=== PATIENT | male | born 2000 | race African-American/Black ===

== ENCOUNTER 2022-10-25 21:13 | Observation (INO) ==
--- NOTE | 2022-10-25 22:09 | Emergency Department Note ---
History of Present Illness General Chief complaint: Pain (Generalized) Stated complaint: PAIN ALL OVER, HEAD HURTS, Time Seen by Provider: 10/25/22 22:05 History of Present Illness Maximum Pain Intensity: 10 This 22-year-old male patient presents to the emergency department with his parents for evaluation of body aches and sickle cell crisis. The patient was seen earlier today due to a sickle cell crisis, but now has an increased headache, overall body pain, and a fever. Temperature 38.5 C orally in triage, but repeat temp was normal once he took off his coat etc. The patient developed an upper respiratory infection about 6 days ago and started taking antibiotics (cefuroxime) which had been prescribed by his ENT provider in the past which he had left over. He states that he became more congested and ended up going to an urgent care who stopped the antibiotics because they thought he was having an allergic reaction and placed him on a round of steroids. He received an IM dose of steroids and has taken 2 doses of the oral steroids so far. The patient was seen in the emergency department earlier today and received 2 L of lactated Ringer's, morphine, 1 g ceftriaxone, and discharged home on oxycodone and Augmentin. However, he was unable to control his pain and symp toms at home with this treatment. He states that his pain is progressively getting worse and he is getting "out of control" headaches. Could not control the symptoms at home after being discharged from the emergency department. States that the headaches are abnormal for him because he rarely gets any headaches and usually does not get headaches with his sickle cell crisis. He is very congested and can only breathe out of his mouth at times. Having pain in his lower back and his stomach feels a little upset at times, but denies abdominal pain. Has not eaten much all day. Denies any urinary symptoms. Moving his bowels well. Has not had a sickle cell crisis since high school. They are concerned that the steroids triggered his episode. 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 He is on Folic Acid and prophylactic penicillin on a regular basis. Sees hematology in [place] where he is from. Home Medications Medication Instructions Recorded Confirmed Type fluticasone propionate 50 2 spray intranasal DAILY 10/25/22 10/25/22 History mcg/actuation nasal spray,suspension folic acid 1 mg tablet 1 mg PO DAILY 10/25/22 10/25/22 History penicillin V potassium 250 mg 250 mg PO BID 10/25/22 10/25/22 History tablet Allergies Allergy/AdvReac Type Severity Reaction Status Date / Time No Known Allergies Allergy Verified 10/25/22 22:30 Past Med/Surg History Medical History Sickle cell disease Surgical History H/O splenectomy Social History Smoking Status: Never smoker Tobacco Type: Cigarettes Hx Alcohol Use: Yes Hx Substance Use: No Preferred Language: Armenian Communication Ability: Effective 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 Physical Exam Vital Signs Vital Signs - 24 hr 10/25/22 21:16 10/25/22 21:30 10/25/22 23:20 Temperature 38.5 C H 37.5 C Temperature Source Temporal Artery Scan Oral Pulse Rate 106 H Pulse Rate [Finger] 61 Respiratory Rate 20 16 Respiratory Depth Blood Pressure 114/69 Blood Pressure [Left Arm] 124/66 Blood Pressure Mean 84 Blood Pressure Mean [Left Arm] 85 Pulse Oximetry 96 88 L Oxygen Delivery Method Room Air Room Air Oxygen Flow Rate Sepsis Recent Fever Within 48 Hours No Sepsis New/Unexplained Change in Mental Status N/A Sepsis Action Taken by Nursing No Action Required 10/25/22 23:22 10/26/22 00:00 Temperature Temperature Source Pulse Rate Pulse Rate [Finger] 62 61 Respiratory Rate 16 16 Respiratory Depth Normal Blood Pressure Blood Pressure [Left Arm] 133/72 Blood Pressure Mean Blood Pressure Mean [Left Arm] 92 Pulse Oximetry 93 99 Oxygen Delivery Method Nasal Cannula Nasal Cannula Oxygen Flow Rate 2 2 Sepsis Recent Fever Within 48 Hours Sepsis New/Unexplained Change in Mental Status Sepsis Action Taken by Nursing VITALS: Vitals are noted on the nurse's note and reviewed by myself. GENERAL: The patient appears in pain, but non toxic, no acute distress, non- diaphoretic. SKIN: No obvious rashes noted. Capillary refill <2 sec. EARS: External auditory canals clear, tympanic membranes pearly campuzano without erythema or effusion bilaterally. EYES: PERRLA. EOMI. Conjunctivae without injection, sclerae without icterus. NOSE: Audible nasal congestion without active discharge frontal sinus tenderness bilaterally. MOUTH: Mucous membranes moist. Uvula midline. Airway patent. NECK: Supple without nuchal rigidity. Negative Kernig and Brudzinski. No lymphadenopathy. HEART: Regular rate and rhythm without murmurs gallops or rubs. LUNGS: Clear to auscultation bilaterally without wheezes, rales or rhonchi. No retractions or accessory muscle use. ABDOMEN: Positive bowel sounds x 4. Normal tympanic percussion. Soft, nontender, without masses or organomegaly. Okeefe sign negative. No guarding or rebound tenderness. No focal RLQ or LLQ tenderness. MUSCULOSKELETAL: The patient is diffusely tender to palpation due to his body aches. However, no gross musculoskeletal defects. NEURO: Patient was alert and oriented to person place and time. No focal neurological deficits. Course Administered Medications Dextrose/Sodium Chloride (D5w And 1/2nss) 1,000 mls @ 80 mls/hr IV .[id number] MICHI Stop: 10/27/22 03:29 Last Admin: 10/26/22 02:32 Dose: 80 mls/hr Documented By: GRAZYNA Oxycodone HCl (Oxycodone Hcl Ir 5 Mg Tab (Immediate Release)) 5 mg PO Q3H PRN PRN Reason: Moderate Pain Stop: 11/09/22 01:40 Last Admin: 10/26/22 02:00 Dose: 5 mg Documented By: KIT Discontinued Medications Acetaminophen (Acetaminophen 325 Mg Tab) 650 mg PO NOW STA Stop: 10/26/22 01:29 Last Admin: 10/26/22 02:25 Dose: Not Given Documented By: GRAZYNA Sodium Chloride (Nss 1000ml) 1,000 mls @ 999 mls/hr IV .Q1H1M ONE Stop: 10/25/22 23:23 Last Infusion: 10/25/22 23:48 Dose: 0 mls/hr Documented By: Admin: 10/25/22 22:44 Dose: 999 mls/hr Documented By: KIT Ketorolac Tromethamine (Ketorolac Tromethamine 15 Mg/Ml Vial) 10 mg IV NOW STA Stop: 10/26/22 02:09 Last Admin: 10/26/22 02:24 Dose: 10 mg Documented By: GRAZYNA Morphine Sulfate (Morphine Sulfate 10 Mg/Ml Carp/Vial) 6 mg IV NOW STA Stop: 10/25/22 22:24 Last Admin: 10/25/22 22:45 Dose: 6 mg Documented By: KIT Ondansetron HCl (Ondansetron Inj 2 Mg/Ml 2 Ml Vial) 4 mg IV NOW STA Stop: 10/25/22 22:24 Last Admin: 10/25/22 22:45 Dose: 4 mg Documented By: KIT Medical Decision Making Differential Diagnosis Differential diagnosis includes sickle cell crisis, acute intracranial abnormality, meningitis, URI, COVID, influenza, sinusitis, acute chest syndrome, acute abdominal etiology, UTI, or others. Laboratory Data Attestation: I reviewed the patient's lab results. 10/25/22 22:43 10/25/22 22:43 Lab Results 10/25/22 10/25/22 10/25/22 Range/Units 22:43 22:43 22:43 WBC 20.87 H (4.8-10.8) K/ul RBC 3.69 L (4.70-6.10) M/uL Hgb 9.3 L (14.0-18.0) g/dl Hct 27.6 L (42.0-52.0) % MCV 74.8 L (80.0-100.0) fL MCH 25.2 (25.0-34.0) pg MCHC 33.7 (32.0-36.0) g/dL RDW Std Deviation 34.0 L (36.4-46.3) fL RDW Coeff of Anant 13.1 (11.5-14.5) % Plt Count 360 (130-400) K/uL MPV 11.5 (9.4-12.4) fL Reticulocyte % (Auto) 5.6 H (0.5-2.0) % Reticulocyte # 0.21 H (0.02-0.10) 10^6/uL Absolute Nucleated RBC 0.74 H (0-0.12) K/uL Nucleated RBC % (auto) 3.5 % Neutrophils % (Manual) 50 % Lymphocytes % (Manual) 25 % Reactive Lymphs % (Man) 13 % Monocytes % (Manual) 12 % Neutrophils # (Manual) 10.44 H (1.40-6.50) K/uL Total Absolute Neuts 10.44 H (1.4-6.5) K/uL Lymphocytes # (Manual) 5.22 H (1.2-3.4) K/uL Reactive Lymphs # 2.71 K/uL Total Abs Lymphocytes 7.93 H (1.2-3.4) K/uL Monocytes # (Manual) 2.50 H (0.11-0.59) K/uL Polychromasia 1+ Target Cells 2+ Sodium 136 (136-145) mmol/L Potassium 3.4 L (3.5-5.1) mmol/L Chloride 103 (98-107) mmol/L Carbon Dioxide 26 (21-32) mmol/L Anion Gap 7 (3-11) BUN 7 (6-23) mg/dl Creatinine 0.55 L (0.6-1.4) mg/dl Est Cr Clr Drug Dosing Not Reportable Est GFR ( Amer) > 150.0 ml/min Est GFR (Non-Af Amer) > 150.0 ml/min BUN/Creatinine Ratio 12.7 (10-20) Glucose 98 (70-99(Fasting)) mg/dl Lactate 0.9 (0.4-2.0) mmol/L Calcium 8.2 L (8.5-10.1) mg/dl Total Bilirubin 1.3 H (0.2-1.0) mg/dl Direct Bilirubin 0.4 H (0-0.2) mg/dl AST 29 (13-39) U/L ALT 23 (7-52) U/L Alkaline Phosphatase 71 (34-104) U/L Total Protein 7.1 (6.0-8.3) gm/dl Albumin 3.5 (3.4-5.0) gm/dl Globulin 3.6 (2.5-4.0) gm/dl Albumin/Globulin Ratio 1.0 (0.9-2) Urine Color Urine Appearance (Clear) Urine pH (4.5-7.5) Ur Specific [place] (1.000-1.030) Urine Protein (Negative) Urine Glucose (UA) (Negative) Urine Ketones (Negative) Urine Blood (Negative) Urine Nitrite (Negative) Urine Bilirubin (Negative) Urine Urobilinogen (Negative) Ur Leukocyte Esterase (Negative) 10/25/22 Range/Units 22:43 WBC (4.8-10.8) K/ul RBC (4.70-6.10) M/uL Hgb (14.0-18.0) g/dl Hct (42.0-52.0) % MCV (80.0-100.0) fL MCH (25.0-34.0) pg MCHC (32.0-36.0) g/dL RDW Std Deviation (36.4-46.3) fL RDW Coeff of Anant (11.5-14.5) % Plt Count (130-400) K/uL MPV (9.4-12.4) fL Reticulocyte % (Auto) (0.5-2.0) % Reticulocyte # (0.02-0.10) 10^6/uL Absolute Nucleated RBC (0-0.12) K/uL Nucleated RBC % (auto) % Neutrophils % (Manual) % Lymphocytes % (Manual) % Reactive Lymphs % (Man) % Monocytes % (Manual) % Neutrophils # (Manual) (1.40-6.50) K/uL Total Absolute Neuts (1.4-6.5) K/uL Lymphocytes # (Manual) (1.2-3.4) K/uL Reactive Lymphs # K/uL Total Abs Lymphocytes (1.2-3.4) K/uL Monocytes # (Manual) (0.11-0.59) K/uL Polychromasia Target Cells Sodium (136-145) mmol/L Potassium (3.5-5.1) mmol/L Chloride (98-107) mmol/L Carbon Dioxide (21-32) mmol/L Anion Gap (3-11) BUN (6-23) mg/dl Creatinine (0.6-1.4) mg/dl Est Cr Clr Drug Dosing Est GFR ( Amer) ml/min Est GFR (Non-Af Amer) ml/min BUN/Creatinine Ratio (10-20) Glucose (70-99(Fasting)) mg/dl Lactate (0.4-2.0) mmol/L Calcium (8.5-10.1) mg/dl Total Bilirubin (0.2-1.0) mg/dl Direct Bilirubin (0-0.2) mg/dl AST (13-39) U/L ALT (7-52) U/L Alkaline Phosphatase (34-104) U/L Total Protein (6.0-8.3) gm/dl Albumin (3.4-5.0) gm/dl Globulin (2.5-4.0) gm/dl Albumin/Globulin Ratio (0.9-2) Urine Color Real Urine Appearance Clear (Clear) Urine pH 6.0 (4.5-7.5) Ur Specific [place] 1.013 (1.000-1.030) Urine Protein Negative (Negative) Urine Glucose (UA) Negative (Negative) Urine Ketones Negative (Negative) Urine Blood Negative (Negative) Urine Nitrite Negative (Negative) Urine Bilirubin Negative (Negative) Urine Urobilinogen Positive H (Negative) Ur Leukocyte Esterase Negative (Negative) Imaging Data Radiologist's Impression: Preliminary Findings Only See Final Report For Complete Findings CT HEAD: No acute findings. Radiologist: Edward Ashley MD Study ready at 23:12 and initial results transmitted at 23:13 MDM Narrative I examined the patient. Medical records from his emergency department visit earlier today were reviewed. Biofire viral panel and chest x-ray were negative at that time. EKG unremarkable. Blood work was also reviewed. An IV lock was placed and labs were drawn. He was given 1 L normal saline solution bolus. He was also given morphine 6 mg IV and Zofran 4 mg IV with improvement of his pain and nausea. White blood cell count slightly improved to 20.87 from 21.60 earlier today - this may be secondary to his recent steroid use, his current sinusitis, stress response from his sickle cell crisis, or other etiologies. Hemoglobin now 9.3 down from 10.6 earlier today after a total of 3 L of fluid today. Reticulocyte count similar at 5.6 compared to 5.7 earlier today. Potassium 3.4, calcium 8.2, total bilirubin 1.3, direct bilirubin 0.4. CMP otherwise unremarkable. Lactate normal and procalcitonin was normal earlier today. Urinalysis positive for urobilinogen, but otherwise negative. The patient states that his headache was atypical and he had a questionable fever upon arrival in triage today. CT scan of the head without contrast was interpreted by myself and read by stat read as above and was negative for acute intracranial abnormalities. I do not suspect meningitis based on his history and exam findings. I do not suspect acute chest syndrome, avascular necrosis, or blood clots at this time. I do not suspect acute intra-abdominal etiology re quiring CT scan at this time, however, he will need to be monitored closely for development of any of these etiologies or other complications. The patient has failed outpatient treatment with Augmentin and oxycodone. He does not feel he can be discharged home to manage his symptoms as an outpatient. I discussed the case with the on-call hospitalist who agreed to accept the patient for admission. Please refer to their dictation for further details. The patient was admitted in stable condition. Impression & Plan Sickle cell crisis, Sinusitis, Headache Discharge Plan Visit Data Chief Complaint: Pain (Generalized) Stated Complaint: PAIN ALL OVER, HEAD HURTS, ED Provider: Delfino Stafford ED Midlevel Provider: Isabela Mckenzie Discharge Problem: Sickle cell crisis, Sinusitis, Headache Patient Disposition: Admitted As Inpatient Condition: Good Discharge Instructions Interventions: ED Discharge Assessment Last Done: 10/26/22 02:08
[2022-10-25] MEDS ORDERED: ONDANSETRON INJ 2 MG/ML 2 ML VIAL IV STA (22:23)
[2022-10-25] MEDS ORDERED: MoRPHine SULFATE 10 MG/ML CARP/VIAL IV STA (22:23)
[2022-10-25] MEDS ORDERED: SODIUM CHLORIDE 0.9% 1000ML 1,000 ML IV ONE (22:23)
[2022-10-25 23:02] LABS: Hematocrit (blood only) 27.6 % (42.0-52.0); Hemoglobin 9.3 g/dl (14.0-18.0); Mean Corpuscular Hemoglobin 25.2 pg (25.0-34.0); Mean Corpuscular Hgb Conc 33.7 g/dL (32.0-36.0); Mean Corpuscular Volume 74.8 fL (80.0-100.0); Mean Platelet Volume 11.5 fL (9.4-12.4); Nucleated RBC # (auto) 0.74 K/uL (0-0.12); Nucleated RBC % (auto) 3.5 %; Platelet Count 360 K/uL (130-400); RDW Coefficient of Variation 13.1 % (11.5-14.5); Red Blood Count 3.69 M/uL (4.70-6.10); Reticulocyte % 5.6 % (0.5-2.0); Reticulocytes # 0.21 10^6/uL (0.02-0.10); White Blood Count 20.87 K/ul (4.8-10.8)
[2022-10-25 23:19] LABS: Alanine Aminotransferase 23 U/L (7-52); Albumin Level 3.5 gm/dl (3.4-5.0); Alkaline Phosphatase 71 U/L (34-104); Anion Gap 7 (3-11); Aspartate Aminotransferase 29 U/L (13-39); BUN Creatinine Ratio 12.7 (10-20); Bilirubin Direct 0.4 mg/dl (0-0.2); Bilirubin,Total 1.3 mg/dl (0.2-1.0); Blood Urea Nitrogen 7 mg/dl (6-23); Calcium 8.2 mg/dl (8.5-10.1); Carbon Dioxide 26 mmol/L (21-32); Chloride 103 mmol/L (98-107); Est GFR (African American) > 150.0 ml/min; Est GFR (Non-African American) > 150.0 ml/min; Globulin 3.6 gm/dl (2.5-4.0); Glucose 98 mg/dl (70-99(Fasting)); Potassium 3.4 mmol/L (3.5-5.1); Sodium 136 mmol/L (136-145); Total Protein 7.1 gm/dl (6.0-8.3)
[2022-10-25 23:58] LABS: Appearance Urine Clear (Clear); Bilirubin Urine Negative (Negative); Blood Urine Negative (Negative); Color Urine Orange; Glucose Urine UA Negative (Negative); Ketones Urine Negative (Negative); Leukocyte Esterase Urine Negative (Negative); Nitrite Urine Negative (Negative); Protein Urine Negative (Negative); Specific Gravity Urine 1.013 (1.000-1.030); Urobilinogen Urine Positive (Negative)
[2022-10-26 00:30] LABS: ALC (manual) 7.93 K/uL (1.2-3.4); ANC (manual) 10.44 K/uL (1.4-6.5); Lymphocytes # (manual) 5.22 K/uL (1.2-3.4); Lymphocytes % (manual) 25 %; Monocytes % (manual) 12 %; Neutrophils # (manual) 10.44 K/uL (1.40-6.50); Neutrophils % (manual) 50 %; Polychromasia 1+; Reactive Lymphocytes # (manual) 2.71 K/uL; Reactive Lymphocytes % (manual) 13 %; Target Cells 2+
--- NOTE | 2022-10-26 00:50 | History & Physical Report ---
Date of Service October 26, 2022 Assessment & Plan (1) Sickle cell crisis: Plan: Donnell is a 22 year old male w/ PmHx sickle cell disease admitted for acute crisis in the face of URI. Sickle cell crisis: -Hgb 9.3, T bili 1.3, D bili 0.4. U/A negative except urobilinogen. -CXR negative for any acute cardiopulmonary processes. -EKG NSR w/o any acute ischemic changes. -Headache this ED visit however CT Head negative. -Most likely sickle cell crisis exacerbated by infection. -Tylenol q4h PRN for mild to moderate pain, oxycodone 5mg q3h for moderate pain, morphine 2mg IV for mod to severe pain, morphine 4mg IV for severe pain. -Patient had requested Toradol due to relief he felt and wanting to stay off opioids. Told patient not recommended due to potential for occlusion of renal arteries or areterioles that could result in kidney injury, worsened by NSAID use. Patient still requested and so Toradol 10mg spot dose given on admission. -Continue home folic acid daily. -Patient not on hydroxyurea at home, no need to start at this visit. -Monitor for acute chest or acute worsening of symptoms. -Once pain under good control can D/C. Sinusitis: -Hx of splenectomy on pencillin V 250mg BID. -Had few days of cefuroxime w/o relief. -Given 1g Ceftriaxone (CTX) in ED. -Continue CTX 1g q24h for 2 more days given potential for haemophilus infection. -If D/C'ed prior to finishing, can D/C on equivalent oral. -Can hold penicillin V while on CTX. DVT Prophylaxis: Patient mobile, not needed at this time. F/E/N/GI: Regular diet. Code status: Full code Dispo: Med/surg (2) Sinusitis: History of Present Illness Chief Complaint: Generalized pain Primary Care Provider: [facility] Donnell is a 22 year old PmHx sickle cell disease coming in to the ED for generalized pain and sickle cell crisis. Patient had the onset of new URI symptoms early last week which worsened on Monday w/ congestion and sinus pressure. Patient had cefuroxime from previous ENT visit that he used for a few days however the congestion worsened. He then went to urgent care around [place] and it was thought he was having a reaction to the antibiotic so he was given an IM dose of steroid and placed on prednisone to go home on. After taking the prednisone, on the night of 10/24 he developed severe pain in his legs, lower back, chest, shoulders, and arms. His pain was so bad he decided to come into the ED where he received 2L of LR, a few spot doses of morphine, 1g CTX, and sent home with oxycodone and a prescription for Augmentin since the patient felt he would rather be discharged and manage at home. However his pain returned and he came back to the ED with a decision to admit to control pain. Currently his pain is worst at the lower back near the coccyx and at the bilateral upper legs. He also complains of a headache across the forehead but he also states he did not eat much today. He states that he follows with hematology in his hometown of [place] where he usually goes if he feels a sickle cell crisis coming on and they treat him in office. His parents state that he's had around 3 sickle crisis before with the last one being 3 or more years ago when he was in high school. His parents state he usually does not take any opioid medications for the sickle cell crisis, even on discharge out of hospitals for crisis. He had a splenectomy at 8 years of age and is on penicillin V 250mg BID for prophylaxis. He denies any shortness of breath, chills, diarrhea, constipation, vomiting. In the ED he had an elevated WBC 20.87, Hgb 9.3, Platelet 360, reticulocyte 0.21. Na 136, K+ 3.4, Cl 103, BUN 7, Creat 0.55, T bili 1.3, D bili 0.4. U/A positive for urobilinogen but negative otherwise. Respiratory PCR panel negative. He was given 1L NSS, 6mg morphine, 4mg ondansetron in the ED. Allergies Allergy/AdvReac Type Severity Reaction Status Date / Time No Known Allergies Allergy Verified 10/25/22 22:30 Home Medications Medication Instructions Recorded Confirmed Type fluticasone propionate 50 2 spray intranasal DAILY 10/25/22 10/25/22 History mcg/actuation nasal spray,suspension folic acid 1 mg tablet 1 mg PO DAILY 10/25/22 10/25/22 History penicillin V potassium 250 mg 250 mg PO BID 10/25/22 10/25/22 History tablet Past Med/Surg History Medical History Sickle cell disease Surgical History H/O splenectomy Social History Smoking Status: Never smoker Tobacco Type: Cigarettes Hx Alcohol Use: Yes Hx Substance Use: No Preferred Language: Cypriot Communication Ability: Effective 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 Physical Exam Constitutional: WD/WN, vitals as above Patient lying in bed not in any acute distress, visible mouth breathing and audible congestion. Eyes: PERRL, conjunctivae normal, anicteric sclerae Respiratory: Lungs clear to auscultation on inhalation, mildly course on end expiration however mostly upper respiratory, no stridor. Cardiovascular: RRR, no murmur, no edema Gastrointestinal (Abdomen): normal bowel sounds, soft, nontender, no hepatosplenomegaly Psychiatric: A+Ox3, euthymic affect Results & Data Results & Data ([facility]) Vital Signs (Past 12 Hours) Vital Signs Temp Pulse Pulse Resp BP BP Pulse Ox 10/26/22 00:00 61 16 133/72 99 10/25/22 23:22 62 16 93 10/25/22 23:20 61 16 124/66 88 L 10/25/22 21:30 37.5 C 10/25/22 21:16 38.5 C H 106 H 20 114/69 96 O2 Del Method O2 Flow Rate 10/26/22 00:00 Nasal Cannula 2 10/25/22 23:22 Nasal Cannula 2 10/25/22 23:20 Room Air 10/25/22 21:30 10/25/22 21:16 Room Air Supervising Physician Co-Signing Physician Notes Patient seen and examined, chart reviewed, case discussed with Dr. Rodriguez and I agree with the assessment and plan as above. IN brief, patient is a 22yo male with sickel cell disease s/p splenectomy presenting with acute vaso- occlusive pain crisis in the setting of URI symptoms. He is complaining of pain in his back and thighs. Also with considerable nasal congestion. He denies fever, chills, cough, SOB. Does have some mild chest discomfort. On exam he is somnolent after receiving Morphine, NAD Skin - intact HEENT - MMM, Neck supple Heart - +S1/S2, regular, no m/r/g Lungs - CTA, no rales/rhonchi/wheezes Abd - Soft, NT/ND Ext - warm, well perfused Labs and images reviewed Assessment/Plan - 22yo male with SSA presenting with acute pain crisis Family is at bedside. Is concerned about patient receiving opioids. Does want him to have Toradol Trigger most likely viral URI syndrome -IVF, O2, pain control -Ceftriaxone -Hold patient's prophylactic PCN VK -Monitor CBC and reticulocytes -Remainder of plan as above Resident Activity Tracking Resident Involvement: Resident Care Provided Care Provided: Adult Hospital Medicine (1) Sinusitis Chronicity: acute Recurrence: non-recurrent Sinusitis location: unspecified location Qualified Code(s): J01.90 - Acute sinusitis, unspecified
[2022-10-26] MEDS ORDERED: ACETAMINOPHEN 325 MG TAB PO STA (01:28)
[2022-10-26] MEDS: oxyCODONE HCL IR 5 MG TAB (IMMEDIATE RELEASE) PO PRN ×4 (02:00→22:24)
[2022-10-26] MEDS ORDERED: KETOROLAC TROMETHAMINE 15 MG/ML VIAL IV STA (02:08)
[2022-10-26] MEDS ORDERED: MoRPHine SULFATE 4 MG/ML 1 ML CARP\\VIAL IV PRN ×2 (02:19→03:13)
[2022-10-26] MEDS ORDERED: MoRPHine SULFATE 2 MG/ML CARP IV PRN (02:19)
[2022-10-26] MEDS: D5W AND 1/2NSS 1,000 ML IV SCH ×2 (02:32→15:22)
[2022-10-26] MEDS: MoRPHine SULFATE 2 MG/ML CARP IV PRN ×2 (04:22→09:09)
[2022-10-26] MEDS ORDERED: ONDANSETRON INJ 2 MG/ML 2 ML VIAL IV PRN (04:30)
[2022-10-26] MEDS ORDERED: POTASSIUM CHLORIDE CRTAB 20 MEQ TABCR PO STA (07:18)
--- NOTE | 2022-10-26 07:24 | CT Scan Report ---
CT OF THE HEAD WITHOUT CONTRAST CLINICAL HISTORY: Headache. COMPARISON STUDY: No previous studies for comparison. CT DOSE: 548.23 mGy.cm TECHNIQUE: Helical axial images of the head were obtained without IV contrast. Automated exposure con trol was utilized for the study. A dose lowering technique was utilized adhering to the principles o f ALARA. FINDINGS: No acute intracranial hemorrhage, midline shift or mass effect is present. The ventricular system is unremarkable. The basal cisterns are patent. No extra-axial collections are present. There are no findings to suggest acute dural sinus thrombosis or acute territorial infarct. No significant calvarial abnormalities are present. The adenoids are enlarged, partially imaged on this exam. There are secretions within the nasal cavity. Minimal sinus mucosal thickening is present. IMPRESSION: 1. No acute intracranial findings. 2. Enlarged adenoids, partially imaged on this exam. ACT 112: Negative or not required by law. Electronically signed by: Dimas Callahan M.D. 10/26/2022 7:22 AM
[2022-10-26] MEDS: ACETAMINOPHEN 325 MG TAB PO PRN ×3 (07:36→19:35)
[2022-10-26] MEDS: ENOXAPARIN INJ 40 MG/0.4 ML SYR SQ SCH (08:40)
[2022-10-26] MEDS: FLUTICASONE PROPIONATE NA SPR 16 GM BTL SCH ×2 (08:41→21:02)
[2022-10-26] MEDS: FOLIC ACID 1 MG TAB PO SCH (08:42)
[2022-10-26] MEDS: guaiFENesin 600 MG TABCR PO SCH ×3 (08:42→21:07)
[2022-10-26] MEDS ORDERED: SODIUM CHLORIDE 0.65% NA SOLN 45 ML (OCEAN) PRN (09:28)
[2022-10-26] MEDS ORDERED: PIPERACILLIN/TAZOBACTAM 4.5 GM in DEXTROSE 5% 100 ML IV ONE (09:30)
--- NOTE | 2022-10-26 09:31 | Hospitalist Progress Note ---
Date of Service October 26, 2022 Assessment & Plan (1) Sickle cell crisis: Plan: Donnell is a 22 year old male w/ PmHx sickle cell disease admitted for acute crisis in the face of URI. Sickle cell crisis: -Hgb 9.3, T bili 1.3, D bili 0.4. U/A negative except urobilinogen. -CXR negative for any acute cardiopulmonary processes. -EKG NSR w/o any acute ischemic changes. -Headache this ED visit however CT Head negative. -Tylenol q4h PRN for mild to moderate pain, oxycodone 5mg q3h for moderate pain - Morphine discontinued upon patient request -1 dose Toradol 10mg spot dose given on admission at patient request -Continue home folic acid daily. -IV fluids: D5W + 1/2NSS 80 ml/hr -Monitor for acute chest or acute worsening of symptoms. 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 Code status: Full code Dispo: PCU (2) Sinusitis: (3) Mononucleosis: Admission and Anticipated Discharge Date Admission Date: October 26, 2022 Supervising Physician Co-Signing Physician Notes Resident Physician Supervision Note: I independently interviewed and examined the patient and verified the marin history and physical, reviewed labs and image studies and agree with resident findings and care plan. 22yo male with sickel cell disease s/p splenectomy presenting with acute vaso- occlusive pain crisis in the setting of URI symptoms. Pain in back and thigh controlled with medication. continues to have significant nasal congestion and muffled voice. No chest pain, shorntess of breath On exam he is somnolent after receiving Morphine, NAD Skin - intact HEENT - MMM, Neck supple, enlarged tonsils. Heart - +S1/S2, regular, no m/r/g Lungs - CTA, no rales/rhonchi/wheezes Abd - Soft, NT/ND Ext - warm, well perfused Labs and images reviewed Assessment/Plan - 22yo male with SSA presenting with acute pain crisis Acute pain crisis - Family is at bedside. Is concerned about patient receiving opioids. Does want him to have Toradol Trigger most likely viral URI syndrome -IVF, O2, pain control -Ceftriaxone -Hold patient's prophylactic PCN VK -Monitor CBC and reticulocytes Severe nasal congestion and muffled voice - Chest CT done with no abscesses -no airway support needed. Subjective Donnell Pacheco is a 22 yo male with a PMH of Sickle Cell Anemia and splenectomy. Presented 2/7 two times to the ED with generalized pain, headache and fever that began the night prior. He had sinus congestion and symptoms of a URI 6 days prior. He took leftover Cefuroxime and an urgent care prescribed oral steroids. Home medications include fluticasone, folic acid, and penicillin. He has never had a blood clot, transfusion, or taken hydroxyurea before. He recalls having the Strep pneumo and flu vaccine, unsure about H influenzae, has not gotten the COVID vaccine. Today he reports significant pain but is extremely fatigued and falling asleep during the conversation. Parents at bedside. He has seen [facility] in the past and only required their day time clinics for hydration and pain relief. Physical Exam 2 Constitutional: + ill appearing ENMT: Mouth: + muffled voice Respiratory: normal respiratory effort Auscultation: lungs clear to auscultation bilaterally Cardiovascular: RRR, no murmur, no edema Gastrointestinal (Abdomen): normal bowel sounds, soft, nontender, no hepatosplenomegaly Psychiatric: A+Ox3, euthymic affect Lymphatic: no cervical or axillary lymphadenopathy Results & Data Results & Data ([facility]) Vital Signs (Past 12 Hours) Vital Signs Temp Pulse Resp BP Pulse Ox O2 Del Method O2 Flow Rate 10/26/22 08:37 39.3 C H 85 97 Room Air 10/26/22 07:11 38.1 C H 104 H 19 106/64 96 Room Air 10/26/22 02:42 37.1 C 82 18 131/77 99 Room Air 10/26/22 01:51 71 20 130/78 97 Room Air 10/26/22 00:00 61 16 133/72 99 Nasal Cannula 2 10/25/22 23:22 62 16 93 Nasal Cannula 2 10/25/22 23:20 61 16 124/66 88 L Room Air 10/25/22 21:30 37.5 C (1) Sinusitis Chronicity: subacute Sinusitis location: frontal Qualified Code(s): J01.10 - Acute frontal sinusitis, unspecified
[2022-10-26] MEDS ORDERED: OPTIRAY 350 100ml IV ONE (10:00)
--- NOTE | 2022-10-26 10:07 | CT Scan Report ---
CT OF THE NECK WITH IV CONTRAST CLINICAL HISTORY: Muffled voice, SIRS COMPARISON STUDY: No previous studies for comparison. TECHNIQUE: Following IV administration of 87 mL of Optiray, helical axial images of the neck were ob tained. Sagittal and coronal reconstructions were viewed. Automated exposure control was utilized f or the study. A dose lowering technique was utilized adhering to the principles of ALARA. CT DOSE: 395.17 mGycm FINDINGS: Visualized portions of the intracranial contents are unremarkable. Trace fluid within the left mastoid air cells is present. There is minimal sinus mucosal thickening. There are secretions wi thin the nasopharynx. The adenoids are enlarged. In addition, the bilateral palatine tonsils are enla rged and hyperemic with striated appearance. There is no peritonsillar abscess. Epiglottis is normal. The parotid and submandibular glands are normal. Numerous mildly enlarged bilateral cervical lymph n odes are noted. Index right level 2 node measures 2.3 x 1.4 cm. There is trace prevertebral edema. Ma tram vasculature of the neck is patent. There is no soft tissue gas. A few tiny subpleural nodules wit hin visualized right lung apex are likely benign. IMPRESSION: 1. Enlarged, hyperemic tonsils consistent acute tonsillitis. No peritonsillar abscess. Enlarged adeno ids. 2. Mild bilateral cervical lymphadenopathy which is likely reactive. 3. Minimal sinus mucosal thickening. Secretions within the nasal cavity and nasopharynx. ACT 112: Negative or not required by law. Electronically signed by: Dimas Callahan M.D. 10/26/2022 10:05 AM
[2022-10-26 10:45] LABS: Hematocrit (blood only) 27.9 % (42.0-52.0); Hemoglobin 9.2 g/dl (14.0-18.0); Mean Corpuscular Hemoglobin 25.1 pg (25.0-34.0); Mean Platelet Volume 11.6 fL (9.4-12.4); Nucleated RBC % (auto) 4.9 %; Platelet Count 349 K/uL (130-400); RDW Coefficient of Variation 13.2 % (11.5-14.5); RDW Standard Deviation 34.8 fL (36.4-46.3); Red Blood Count 3.67 M/uL (4.70-6.10); White Blood Count 20.39 K/ul (4.8-10.8)
--- NOTE | 2022-10-26 10:57 | Electrocardiogram Report ---
Test Reason : Blood Pressure : / mmHG Vent. Rate : 064 BPM Atrial Rate : 064 BPM P-R Int : 122 ms QRS Dur : 090 ms QT Int : 388 ms P-R-T Axes : 061 032 028 degrees QTc Int : 400 ms Normal sinus rhythm Normal ECG No previous ECGs available Confirmed by Prakash Hirsch ([id number]) on 10/26/2022 10:57:37 AM Referred By: REFERRED SELF Confirmed By:Prakash Hirsch
[2022-10-26 11:13] LABS: Alanine Aminotransferase 28 U/L (7-52); Albumin Globulin Ratio 1.1 (0.9-2); Albumin Level 3.6 gm/dl (3.4-5.0); Alkaline Phosphatase 131 U/L (34-104); Anion Gap 4 (3-11); Aspartate Aminotransferase 41 U/L (13-39); Bilirubin,Total 1.4 mg/dl (0.2-1.0); Blood Urea Nitrogen 6 mg/dl (6-23); Calcium 8.2 mg/dl (8.5-10.1); Carbon Dioxide 28 mmol/L (21-32); Chloride 99 mmol/L (98-107); Creatinine Clr Calc Pharmacy 147.8 ml/min; Est GFR (African American) > 150.0 ml/min; Est GFR (Non-African American) 138.3 ml/min; Globulin 3.4 gm/dl (2.5-4.0); Glucose 109 mg/dl (70-99(Fasting)); Magnesium 1.5 mg/dl (1.7-2.4); Potassium 3.8 mmol/L (3.5-5.1); Sodium 131 mmol/L (136-145)
[2022-10-26 11:40] LABS: ALC (manual) 7.14 K/uL (1.2-3.4); ANC (manual) 11.21 K/uL (1.4-6.5); Basophils % (manual) 1 %; Lymphocytes # (manual) 4.08 K/uL (1.2-3.4); Lymphocytes % (manual) 20 %; Monocytes # (manual) 1.84 K/uL (0.11-0.59); Monocytes % (manual) 9 %; Neutrophils # (manual) 11.21 K/uL (1.40-6.50); Neutrophils % (manual) 55 %; Reactive Lymphocytes # (manual) 3.06 K/uL; Reactive Lymphocytes % (manual) 15 %
[2022-10-26] MEDS ORDERED: cefTRIAXone SODIUM 1,000 MG in DEXTROSE 5% AD-VAN 50 ML IV SCH (12:00)
[2022-10-26] MEDS: MAGNESIUM SULFATE / D5W 1 GM/100 ML BAG IV SCH ×3 (12:13→15:22)
--- NOTE | 2022-10-26 17:25 | Billing Data ---
Date of Service October 26, 2022 Coding Level of Care Code 87861 INT INP/OBS CARE
[2022-10-27] MEDS: ACETAMINOPHEN 325 MG TAB PO PRN (03:05)
[2022-10-27 06:07] LABS: Hematocrit (blood only) 28.2 % (42.0-52.0); Hemoglobin 9.6 g/dl (14.0-18.0); Mean Corpuscular Hemoglobin 25.4 pg (25.0-34.0); Mean Corpuscular Volume 74.6 fL (80.0-100.0); Mean Platelet Volume 11.2 fL (9.4-12.4); Nucleated RBC # (auto) 0.87 K/uL (0-0.12); Nucleated RBC % (auto) 4.2 %; Platelet Count 342 K/uL (130-400); RDW Coefficient of Variation 12.7 % (11.5-14.5); RDW Standard Deviation 33.3 fL (36.4-46.3); Red Blood Count 3.78 M/uL (4.70-6.10); White Blood Count 20.75 K/ul (4.8-10.8)
[2022-10-27] MEDS: oxyCODONE HCL IR 5 MG TAB (IMMEDIATE RELEASE) PO PRN ×3 (06:13→20:47)
[2022-10-27 06:16] LABS: Alanine Aminotransferase 26 U/L (7-52); Albumin Globulin Ratio 0.9 (0.9-2); Albumin Level 3.6 gm/dl (3.4-5.0); Alkaline Phosphatase 145 U/L (34-104); Anion Gap 8 (3-11); Aspartate Aminotransferase 30 U/L (13-39); BUN Creatinine Ratio 10.7 (10-20); Bilirubin,Total 1.5 mg/dl (0.2-1.0); Blood Urea Nitrogen 6 mg/dl (6-23); Calcium 8.2 mg/dl (8.5-10.1); Carbon Dioxide 25 mmol/L (21-32); Chloride 104 mmol/L (98-107); Creatinine Clr Calc Pharmacy 176.8 ml/min; Est GFR (African American) > 150.0 ml/min; Est GFR (Non-African American) 148.9 ml/min; Globulin 3.8 gm/dl (2.5-4.0); Glucose 104 mg/dl (70-99(Fasting)); Magnesium 2.2 mg/dl (1.7-2.4); Potassium 3.7 mmol/L (3.5-5.1); Sodium 137 mmol/L (136-145); Total Protein 7.4 gm/dl (6.0-8.3)
[2022-10-27] MEDS: ENOXAPARIN INJ 40 MG/0.4 ML SYR SQ SCH (09:08)
[2022-10-27] MEDS: POLYETHYLENE (MIRALAX) 17 GM PACK PO SCH (09:15)
[2022-10-27] MEDS: FLUTICASONE PROPIONATE NA SPR 16 GM BTL SCH ×2 (09:15→20:38)
[2022-10-27] MEDS: guaiFENesin 600 MG TABCR PO SCH ×2 (09:15→20:39)
[2022-10-27] MEDS: FOLIC ACID 1 MG TAB PO SCH (09:15)
[2022-10-27] MEDS: D5W AND 1/2NSS 1,000 ML IV SCH ×2 (12:13→21:29)
--- NOTE | 2022-10-27 13:26 | Hospitalist Progress Note ---
Date of Service October 27, 2022 Assessment & Plan (1) Sickle cell crisis: Plan: Donnell is a 22 year old male w/ PmHx sickle cell disease admitted for acute crisis in the face of URI. Sickle cell crisis: -Hgb 9.3, T bili 1.3, D bili 0.4. U/A negative except urobilinogen. -CXR negative for any acute cardiopulmonary processes. -EKG NSR w/o any acute ischemic changes. -Headache this ED visit however CT Head negative. -Tylenol q4h PRN for mild to moderate pain, oxycodone 5mg q3h for moderate pain - Morphine discontinued upon patient request -1 dose Toradol 10mg spot dose given on admission at patient request -Continue home folic acid daily. -IV fluids: D5W + 1/2NSS 80 ml/hr -Monitor for acute chest or acute worsening of symptoms. 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 250mg BID, restarted 10/27 -Had few days of cefuroxime w/o relief, Given 1g Ceftriaxone (CTX) without improvement -Coverage broadened to 4.5 mg Zosyn, discontinued 10/27, 48 hour prelim blood cultures negative Sickle Cell Anemia - Retic 5.6%, Hgb 9.2, will monitor - Penicillin 250mg daily, restarted 10/27 - Folic acid 1mg daily, continue - Hx of past sickle cell crises and splenectomy - Vaccinated against Strep pneumo - Sees [facility] in [place], last seen 2018 - Will refer to [facility]ematology DVT Prophylaxis: SCDs, Lovenox 40mg (given 10/26, patient refused 10/27) F/E/N/GI: Regular diet. Code status: Full code Dispo: PCU (2) Sinusitis: (3) Mononucleosis: Admission and Anticipated Discharge Date Admission Date: October 26, 2022 Supervising Physician Co-Signing Physician Notes Medical Student Supervision Note: I was personally present during medical student patient encounter and independently interviewed and examined the patient and verified the marin history and physical, reviewed labs and image studies, discussed the case with Dona Rogers and agree with the findings and care plan. 22yo male with sickel cell disease s/p splenectomy presenting with acute vaso- occlusive pain crisis in the setting of URI symptoms. Pain in back and thigh controlled with medication. nasal congestion and muffled voice better. had fever last night. No chest pain, shorntess of breath More alert but still somnolent. Vitals - with sinus tachycardia Skin - intact HEENT - MMM, Neck supple, enlarged tonsils. Heart - +S1/S2, regular, no m/r/g Lungs - CTA, no rales/rhonchi/wheezes Abd - Soft, NT/ND Ext - warm, well perfused Labs and images reviewed Assessment/Plan - 22yo male with SSA presenting with acute pain crisis Acute pain crisis - Trigger [place]. Continues to be tachycardic and with fever last night -IVF, O2, pain control -Ceftriaxone -Hold patient's prophylactic PCN VK -Monitor CBC and reticulocytes Severe nasal congestion and muffled voice - Chest CT done with no abscesses -no airway support needed. Subjective Donnell Pacheco is a 22 yo male with a PMH of Sickle Cell Anemia and splenectomy. Presented 2/7 two times to the ED with generalized pain, headache and fever that began the night prior. He had sinus congestion and symptoms of a URI 6 days prior. He took leftover Cefuroxime and an urgent care prescribed oral steroid and given a dose of Ceftriaxone. Home medications include fluticasone, folic acid, and penicillin. He has never had a blood clot, transfusion, or taken hydroxyurea before. He recalls having the Strep pneumo and flu vaccine, unsure about H influenzae, has not gotten the COVID vaccine. Today his pain is improved on Oxy/Acetaminophen. He had abdominal pain last night and was last febrile at 11pm. He has improved PO intake today. He has continued congestion but no trouble breathing or swallowing. Last bowel movement was on Monday. Physical Exam Constitutional: + ill appearing ENMT: Mouth: + muffled voice Respiratory: normal respiratory effort Auscultation: lungs clear to auscultation bilaterally Cardiovascular: RRR, no murmur, no edema Gastrointestinal (Abdomen): normal bowel sounds, soft, nontender, no h epatosplenomegaly Psychiatric: A+Ox3, euthymic affect Lymphatic: no cervical or axillary lymphadenopathy Results & Data Results & Data ([facility]) Vital Signs (Past 12 Hours) Vital Signs Temp Pulse Resp BP Pulse Ox 10/27/22 11:00 97 H 25 H 126/58 L 97 10/27/22 10:40 108 H 19 10/27/22 11:10 37.1 C 10/27/22 08:06 98 H 15 98 10/27/22 08:06 136/77 10/27/22 07:30 88 23 10/27/22 08:54 77 10/27/22 03:10 36.6 C 10/27/22 02:12 101 H (1) Sinusitis Chronicity: subacute Sinusitis location: frontal Qualified Code(s): J01.10 - Acute frontal sinusitis, unspecified
[2022-10-27] MEDS ORDERED: SIMETHICONE 80 MG CHEW PO STA (18:51)
[2022-10-27] MEDS: PENICILLIN V POTASSIUM 250 MG TAB PO SCH (20:38)
[2022-10-28] MEDS: ACETAMINOPHEN 325 MG TAB PO PRN (00:59)
[2022-10-28] MEDS ORDERED: SIMETHICONE 80 MG CHEW PO ONE (04:00)
[2022-10-28 05:08] LABS: Hematocrit (blood only) 28.5 % (42.0-52.0); Hemoglobin 9.4 g/dl (14.0-18.0); Mean Corpuscular Hemoglobin 24.5 pg (25.0-34.0); Mean Corpuscular Volume 74.2 fL (80.0-100.0); Mean Platelet Volume 11.4 fL (9.4-12.4); Nucleated RBC % (auto) 2.2 %; Platelet Count 365 K/uL (130-400); RDW Coefficient of Variation 12.6 % (11.5-14.5); RDW Standard Deviation 33.1 fL (36.4-46.3); Red Blood Count 3.84 M/uL (4.70-6.10); White Blood Count 18.28 K/ul (4.8-10.8)
[2022-10-28 05:28] LABS: ALC (manual) 5.67 K/uL (1.2-3.4); ANC (manual) 9.14 K/uL (1.4-6.5); Basophils # (manual) 0.18 K/uL (0-0.2); Basophils % (manual) 1 %; Large Granular Lymph # (manua 3.11 K/uL; Large Granular Lymph % (manual) 17 %; Lymphocytes # (manual) 2.56 K/uL (1.2-3.4); Lymphocytes % (manual) 14 %; Monocytes # (manual) 3.29 K/uL (0.11-0.59); Monocytes % (manual) 18 %; Neutrophils # (manual) 9.14 K/uL (1.40-6.50); Neutrophils % (manual) 50 %; Polychromasia 1+; Target Cells 2+
[2022-10-28 05:37] LABS: Albumin Level 3.4 gm/dl (3.4-5.0); Anion Gap 6 (3-11); Bilirubin,Total 1.1 mg/dl (0.2-1.0); Calcium 8.6 mg/dl (8.5-10.1); Carbon Dioxide 28 mmol/L (21-32); Chloride 99 mmol/L (98-107); Magnesium 2.3 mg/dl (1.7-2.4); Potassium 3.9 mmol/L (3.5-5.1); Sodium 133 mmol/L (136-145)
[2022-10-28 05:43] LABS: Alanine Aminotransferase 21 U/L (7-52); Albumin Globulin Ratio 0.8 (0.9-2); Alkaline Phosphatase 127 U/L (34-104); Aspartate Aminotransferase 20 U/L (13-39); BUN Creatinine Ratio 16.4 (10-20); Blood Urea Nitrogen 9 mg/dl (6-23); Est GFR (African American) > 150.0 ml/min; Est GFR (Non-African American) > 150.0 ml/min; Globulin 4.4 gm/dl (2.5-4.0); Glucose 109 mg/dl (70-99(Fasting)); Total Protein 7.8 gm/dl (6.0-8.3)
--- NOTE | 2022-10-28 06:55 | Discharge Summary ---
Date of Service October 28, 2022 Admission HPI Per Admitting Provider Donnell is a 22 year old PmHx sickle cell disease coming in to the ED for generalized pain and sickle cell crisis. Patient had the onset of new URI symptoms early last week which worsened on Monday w/ congestion and sinus pressure. Patient had cefuroxime from previous ENT visit that he used for a few days however the congestion worsened. He then went to urgent care around Monday and it was thought he was having a reaction to the antibiotic so he was given an IM dose of steroid and placed on prednisone to go home on. After taking the prednisone, on the night of 10/24 he developed severe pain in his legs, lower back, chest, shoulders, and arms. His pain was so bad he decided to come into the ED where he received 2L of LR, a few spot doses of morphine, 1g CTX, and sent home with oxycodone and a prescription for Augmentin since the patient felt he would rather be discharged and manage at home. However his pain returned and he came back to the ED with a decision to admit to control pain. Currently his pain is worst at the lower back near the coccyx and at the bilateral upper legs. He also complains of a headache across the forehead but he also states he did not eat much today. He states that he follows with hematology in his hometown of [place] where he usually goes if he feels a sickle cell crisis coming on and they treat him in office. His parents state that he's had around 3 sickle crisis before with the last one being 3 or more years ago when he was in high school. His parents state he usually does not take any opioid medications for the sickle cell crisis, even on discharge out of hospitals for crisis. He had a splenectomy at 8 years of age and is on penicillin V 250mg BID for prophylaxis. He denies any shortness of breath, chills, diarrhea, constipation, vomiting. In the ED he had an elevated WBC 20.87, Hgb 9.3, Platelet 360, reticulocyte 0.21. Na 136, K+ 3.4, Cl 103, BUN 7, Creat 0.55, T bili 1.3, D bili 0.4. U/A positive for urobilinogen but negative otherwise. Respiratory PCR panel negative. He was given 1L NSS, 6mg morphine, 4mg ondansetron in the ED. Discharge Data Allergies Allergy/AdvReac Type Severity Reaction Status Date / Time No Known Allergies Allergy Verified 10/25/22 22:30 Consultations 10/26/22 00:47 ED Decision to Admit Stat Ordered Studies 10/25/22 22:23 CT head/brain wo con Urgent 10/26/22 08:57 CT soft tissue neck w con Stat Hospital Course (1) Sickle cell crisis: Donnell is a 22 year old male w/ PmHx sickle cell disease admitted for acute crisis in the face of URI. Sickle cell crisis: -Hgb 9.3, T bili 1.3, D bili 0.4. U/A negative except urobilinogen. -CXR negative for any acute cardiopulmonary processes. -EKG NSR w/o any acute ischemic changes. -Headache this ED visit however CT Head negative. -Tylenol q4h PRN for mild to moderate pain, oxycodone 5mg q3h for moderate pain - Morphine discontinued upon patient request -1 dose Toradol 10mg spot dose given on admission at patient request -Continue home folic acid daily. -IV fluids: D5W + 1/2NSS 80 ml/hr -Monitor for acute chest or acute worsening of symptoms. 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 250mg BID, restarted 10/27 -Had few days of cefuroxime w/o relief, Given 1g Ceftriaxone (CTX) without improvement -Coverage broadened to 4.5 mg Zosyn, discontinued 10/27, 48 hour prelim blood cultures negative Sickle Cell Anemia - Retic 5.6%, Hgb 9.2, will monitor - Penicillin 250mg daily, restarted 10/27 - Folic acid 1mg daily, continue - Hx of past sickle cell crises and splenectomy - Vaccinated against Strep pneumo - Sees [facility] in [place], last seen 2019 - Will refer to [facility] Hematology DVT Prophylaxis: SCDs, Lovenox 40mg (given 10/26, patient refused 10/27) F/E/N/GI: Regular diet. Code status: Full code Dispo: PCU (2) Sinusitis: (3) Mononucleosis: Discharge Plan Discharge Items Reason For Visit: SICKLE CELL CRISIS, URI Condition on Discharge: Good Follow-up/Referrals: [facility] [Primary Care Provider] - Medications and DC Order Prescriptions: No Action penicillin V potassium 250 mg tablet 250 mg PO BID folic acid 1 mg tablet 1 mg PO DAILY fluticasone propionate [Flonase] 50 mcg/actuation [place],Suspension 2 spray INTRANASAL DAILY Rx Instructions: administer into each nostril Admission Data Admit Date/Time: 10/26/22 01:39 Attending Provider: Harini Lees Admit Provider: Denny Rodriguez Primary Care Provider: [facility] Other Providers: Laurie Singh
--- NOTE | 2022-10-28 07:19 | Discharge Summary ---
Date of Service October 28, 2022 Admission HPI Per Admitting Provider Donnell is a 22 year old PmHx sickle cell disease coming in to the ED for generalized pain and sickle cell crisis. Patient had the onset of new URI symptoms early last week which worsened on Monday w/ congestion and sinus pressure. Patient had cefuroxime from previous ENT visit that he used for a few days however the congestion worsened. He then went to urgent care around Monday and it was thought he was having a reaction to the antibiotic so he was given an IM dose of steroid and placed on prednisone to go home on. After taking the prednisone, on the night of 10/24 he developed severe pain in his legs, lower back, chest, shoulders, and arms. His pain was so bad he decided to come into the ED where he received 2L of LR, a few spot doses of morphine, 1g CTX, and sent home with oxycodone and a prescription for Augmentin since the patient felt he would rather be discharged and manage at home. However his pain returned and he came back to the ED with a decision to admit to control pain. Currently his p ain is worst at the lower back near the coccyx and at the bilateral upper legs. He also complains of a headache across the forehead but he also states he did not eat much today. He states that he follows with hematology in his hometown of [place] where he usually goes if he feels a sickle cell crisis coming on and they treat him in office. His parents state that he's had around 3 sickle crisis before with the last one being 3 or more years ago when he was in high school. His parents state he usually does not take any opioid medications for the sickle cell crisis, even on discharge out of hospitals for crisis. He had a splenectomy at 8 years of age and is on penicillin V 250mg BID for prophylaxis. He denies any shortness of breath, chills, diarrhea, constipation, vomiting. In the ED he had an elevated WBC 20.87, Hgb 9.3, Platelet 360, reticulocyte 0.21. Na 136, K+ 3.4, Cl 103, BUN 7, Creat 0.55, T bili 1.3, D bili 0.4. U/A positive for urobilinogen but negative otherwise. Respiratory PCR panel negative. He was given 1L NSS, 6mg morphine, 4mg ondansetron in the ED. Admission Exam Per Admitting Provider Constitutional: WD/WN, vitals as above Patient lying in bed not in any acute distress, visible mouth breathing and audible congestion. Eyes: PERRL, conjunctivae normal, anicteric sclerae Respiratory: Lungs clear to auscultation on inhalation, mildly course on end expiration however mostly upper respiratory, no stridor. Cardiovascular: RRR, no murmur, no edema Gastrointestinal (Abdomen): normal bowel sounds, soft, nontender, no hepatosplenomegaly Psychiatric: A+Ox3, euthymic affect Principal Diagnosis Sickle Cell Crisis triggered by Mononucleosis Discharge Exam Constitutional well developed, well nourished and + well hydrated Eyes PERRL, conjunctivae normal, anicteric sclerae ENMT external ear and nose normal, oropharynx normal Respiratory normal respiratory effort Auscultation: lungs clear to auscultation bilaterally Cardiovascular RRR, no murmur, no edema Gastrointestinal (Abdomen) Inspection/Auscultation: abdomen normal to inspection and normal bowel sounds Percussion/Palpation: + abdomen tender and abdomen soft Tender to palaption right upper quadrant andmid upper quadrant Psychiatric A+Ox3, euthymic affect Lymphatic no cervical or axillary lymphadenopathy Discharge Data Allergies Allergy/AdvReac Type Severity Reaction Status Date / Time No Known Allergies Allergy Verified 10/25/22 22:30 Consultations 10/26/22 00:47 ED Decision to Admit Stat Ordered Studies 10/25/22 22:23 CT head/brain wo con Urgent 10/26/22 08:57 CT soft tissue neck w con Stat Hospital Course (1) Sickle cell crisis: Donnell is a 22 year old male w/ PmHx sickle cell disease admitted for acute crisis in the face of URI, found to be positive for mononucleosis. Sickle cell crisis, suspect due to Mononucleosis Admission: - Hgb 9.3, T bili 1.3, D bili 0.4. U/A negative except urobilinogen. -CXR negative for any acute cardiopulmonary processes. -EKG NSR w/o any acute ischemic changes. -Headache in the ED, CT Head negative. -Tylenol q4h PRN for mild to moderate pain, oxycodone 5mg q3h for moderate pain - patient only required several doses of narcotic medications for pain -Morphine discontinued upon patient request -1 dose Toradol 10mg spot dose on admission, 1 dose Toradol 15 mg IV given 10/28 - On discharge, recommended oral tylenol vs. ibuprofen PRN, with oxycodone 5 mg reserved for breakthrough pain -Continue home folic acid daily. -IV fluids: D5W + 1/2NSS 80 ml/hr, administered 10/26 and 10/27, Patient with adequate fluids on 10/28 IV fluids stopped Infection, Sinusitis, Mononucleosis - 10/26: WBC 20.39, predominantly Neutrophil and Lymphocytes - 10/27: 20.75 - 10/27: Last febrile 10/26 night, tachycardic with heart rate 90s-120s, restarted IV fluids D5W + 1/2NSS 80 ml/hr - 10/28: WBC 18.25, afebrile overnight, - Likely Mononucleosis given +Griggs screen as Sickle cell crisis trigger - CT: enlarged adenoids, no peritonsillar abscess noted - Resp biofire and rapid strep negative -Hx of splenectomy on penicillin V 250mg BID, restarted 10/27 -Had few days of cefuroxime and 1 dose Ceftriaxone prior to admission w/o relief, Given Cefepime on admission -Coverage broadened to 4.5 mg Zosyn, discontinued 10/27, 48 hour prelim blood cultures negative Sickle Cell Anemia - Penicillin 250mg daily, restarted 10/27 - Folic acid 1mg daily, continue - Hx of past sickle cell crises and splenectomy - Vaccinated against Strep pneumo - Sees [facility] in [place], last seen 2018 - Will refer to [facility], will follow with [facility] - May require addition of hydroxyurea, defer to hematology (2) Sinusitis: (3) Mononucleosis: Total Time Total Time Spent Total Time Spent (In Minutes): 30 Discharge Plan Discharge Items Patient Disposition: Home - Self-Care Reason For Visit: SICKLE CELL CRISIS, URI Discharge Diagnosis: Sickle Cell Crisis Mononucleosis Condition on Discharge: Good Activity: Per Instructions section Non-emergency contact: Primary Care Provider and Oncologist Call non-emergency contact if: you have any medication questions, your symptoms worsen and you have a fever Follow-up/Referrals: Tennille Echavarria MD [Physician] - (please schedule visit in 3-4 weeks) Salazar Arguelles DO [Resident] - (please schedule f/u within 5-7 days) Diet: Regular Addtl Attending Provider Instructions: You were admitted to [facility] from 10/26 to 10/28 for a sickle cell pain crisis due to mononucleosis infection. On admission you had some throat swelling so we did a CT scan to ensure there was not a deeper more serious infection, and thankfully this was normal. We initially started you on IV antibiotics (Cefepime, Zosyn) but stopped them after 1 day, as mononucleosis does not improve with antibiotics. We also gave you as needed pain medications and IV fluids to help you through your pain crisis. You improved significantly during this hospitalization with the above-mentioned treatments. You will be discharged in improved condition on 10/28: 1. Please make sure you drink lots of fluids and try to eat 3 good meals per day. 2. You can continue to take as-needed Tylenol for pain or as-needed Ibuprofen for pain. You can also take as-needed Oxycodone for severe pain 3. You can take as needed Miralax as well as Mylicon for constipation and gas pain 4. Please continue to take your daily folic acid and daily penicillin as prescribed. You will follow up with Dr. Salazar Arguelles (primary care physician) at [facility], which is located at [address] [address] (across from the hospital). The appointment will be on 11/01 at 2:45pm. You will be scheduled for an appointment with one of our Hematologists in [place], as it will be important for you to establish with one in town while you are going to [facility]. We hope you continue to feel better. It was a pleasure to help provide your care while you were hospitalized. Pending Studies at Discharge: No Stand-Alone Forms: My [facility], Work/School Release, Smoking Cessation Medications and DC Order Prescriptions: Continued penicillin V potassium 250 mg tablet 250 mg PO BID folic acid 1 mg tablet 1 mg PO DAILY fluticasone propionate 50 mcg/actuation [place],Suspension 2 spray INTRANASAL DAILY Rx Instructions: administer into each nostril Discharge Orders: Discharge Order (Routine); Ordered 10/28/22 Ordered By: Donnell Eckert Admission Data Admit Date/Time: 10/26/22 01:39 Attending Provider: Harini Lees Admit Provider: Denny Rodriguez Primary Care Provider: [facility] Other Providers: Laurie Singh Other Interventions: Discharge Summary Assessment (RN) Last Done: 10/28/22 13:36 Supervising Physician Co-Signing Physician Notes Medical Student Supervision Note: I was personally present during medical student patient encounter and independently interviewed and examined the patient and verified the marin history and physical, reviewed labs and image studies, discussed the case with Dona Rogers and agree with the findings and care plan. 22yo male with sickle cell disease s/p splenectomy presenting with acute vaso- occlusive pain crisis in the setting of URI symptoms. Pain controlled on the day discharge with use of nsaids. nasal congestion and muffled voice better. No more fever in last 24 hours No chest pain, shorntess of breath Alert Vitals - with sinus tachycardia Skin - intact HEENT - MMM, Neck supple, enlarged tonsils. Heart - +S1/S2, regular, no m/r/g Lungs - CTA, no rales/rhonchi/wheezes Abd - Soft, NT/ND Ext - warm, well perfused Labs and images reviewed Assessment/Plan - 22yo male with SSA presenting with acute pain crisis Acute pain crisis - Trigger Griggs. Pain improved with IV hydration, O2 and nsaid for pain control. Received IV Antibiotics with negative cultures. No antibiotics on discharge. h/h stayed stable. To resume prophylactic PCN VK Continue nsaids for pain control as needed on discharge.
[2022-10-28] MEDS ORDERED: SIMETHICONE 80 MG CHEW PO STA (08:35)
[2022-10-28] MEDS: POLYETHYLENE (MIRALAX) 17 GM PACK PO SCH (08:47)
[2022-10-28] MEDS: ENOXAPARIN INJ 40 MG/0.4 ML SYR SQ SCH ×2 (08:49→08:56)
[2022-10-28] MEDS: FLUTICASONE PROPIONATE NA SPR 16 GM BTL SCH (08:50)
[2022-10-28] MEDS: D5W AND 1/2NSS 1,000 ML IV SCH (08:51)
[2022-10-28] MEDS: FOLIC ACID 1 MG TAB PO SCH (08:51)
[2022-10-28] MEDS: PENICILLIN V POTASSIUM 250 MG TAB PO SCH (08:51)
[2022-10-28] MEDS: guaiFENesin 600 MG TABCR PO SCH (08:51)
[2022-10-28] MEDS ORDERED: KETOROLAC TROMETHAMINE 15 MG/ML VIAL IV PRN (10:06)
--- NOTE | 2022-10-28 10:38 | XRay Report ---
XR chest 1V portable HISTORY: right chest/rib pain, pain crisis COMPARISON: Chest 10/25/2022. FINDINGS: Overlying cardiac monitoring leads. No pneumothorax. No pleural effusions. The cardiac silh ouette is borderline enlarged. There is mild pulmonary vascular congestion without overt edema. No ne w focal lung consolidations to suggest a pneumonia. Mildly distended gas-filled colon. There are surg ical clips within the left upper quadrant. IMPRESSION: 1. Borderline cardiomegaly with mild central pulmonary vascular congestion without overt edema. 2. Mildly dilated gas-filled colon within the upper abdomen. ACT 112: Negative or not required by law. Electronically signed by: Chon Sr M.D. 10/28/2022 10:36 AM
== END 2022-10-28 14:00 | disposition home or self-care (01) | DRG 812 ==
LOC: ED 21:13 → 3N 10-26 01:39 → SUATTDRO 10-26 01:39 → INTOOBSV 10-26 01:39 → 3N 10-26 02:08 → 1E 10-26 09:08

== ENCOUNTER 2023-11-05 10:31 | Inpatient (IN) ==
[2023-11-05] MEDS: SODIUM CHLORIDE 0.9% 500 ML IV STA (10:45)
[2023-11-05 11:24] LABS: Hematocrit (blood only) 27.5 % (42.0-52.0); Hemoglobin 9.3 g/dl (14.0-18.0); Mean Corpuscular Hemoglobin 24.5 pg (25.0-34.0); Mean Corpuscular Hgb Conc 33.8 g/dL (32.0-36.0); Mean Corpuscular Volume 72.4 fL (80.0-100.0); Mean Platelet Volume 11.3 fL (9.4-12.4); Nucleated RBC # (auto) 0.44 K/uL (0.00-0.12); Nucleated RBC % (auto) 2.2 %; Platelet Count 293 K/uL (130-400); RDW Coefficient of Variation 15.3 % (11.5-14.5); RDW Standard Deviation 38.5 fL (36.4-46.3)
[2023-11-05 11:38] LABS: Alanine Aminotransferase 18 U/L (7-52); Albumin Globulin Ratio 1.5 (0.9-2); Albumin Level 4.7 gm/dl (3.4-5.0); Alkaline Phosphatase 89 U/L (34-104); Anion Gap 8 (3-11); Aspartate Aminotransferase 30 U/L (13-39); BUN Creatinine Ratio 18.3 (10-20); Bilirubin,Total 1.8 mg/dl (0.2-1.0); Blood Urea Nitrogen 11 mg/dl (6-23); Carbon Dioxide 24 mmol/L (21-32); Chloride 104 mmol/L (98-107); Creatinine Clr Calc Pharmacy 160.9 ml/min; Est GFR (African American) > 150.0 ml/min; Est GFR (Non-African American) 143.7 ml/min; Globulin 3.2 gm/dl (2.5-4.0); Glucose 129 mg/dl (70-99(Fasting)); Potassium 3.8 mmol/L (3.5-5.1); Sodium 136 mmol/L (136-145); Total Protein 7.9 gm/dl (6.0-8.3)
[2023-11-05 11:46] LABS: ALC (manual) 1.79 K/uL (1.2-3.4); ANC (manual) 16.32 K/uL (1.4-6.5); Lymphocytes # (manual) 1.79 K/uL (1.2-3.4); Lymphocytes % (manual) 9 %; Metamyelocytes % (manual) 1 %; Monocytes # (manual) 1.19 K/uL (0.11-0.59); Monocytes % (manual) 6 %; Myelocytes % (manual) 2 %; Neutrophils # (manual) 16.32 K/uL (1.40-6.50); Neutrophils % (manual) 82 %; Polychromasia 1+; Sickle Cells 1+; Target Cells 2+
[2023-11-05] MEDS: SODIUM CHLORIDE 0.9% 1,000 ML IV ONE (11:48)
--- NOTE | 2023-11-05 11:49 | Emergency Department Note ---
Impression & Plan Sickle cell crisis, Back pain, Rhinovirus infection, Leukocytosis ED Provider Note NAME: JANIE MCCALL III AGE: 23 SEX: M : 2000 ARRIVES VIA: Walk-In INFORMANT: [Patient] ED PROVIDER(S): [Delfino Stafford MD] CHIEF COMPLAINT: Pain HISTORY OF PRESENT ILLNESS: The patient is a 23-year-old male with a history of sickle cell disease. He was discharged from our hospital 8 days ago after being in for a sickle cell flare. He had mono at that time. The patient was doing well at discharge. The patient states that about a week ago, he developed a cough and some stuffy nose and felt he had a cold. He began experiencing some bilateral arm pain consistent with a sickle cell flare but things seemed controlled with his oxycodone. In the last 24 hours, he has had increasing pain in the sacrum and pelvis and tailbone as well as in his lower back. He states that the pain is not controlled with oxycodone. He presents for evaluation. There has been no fever, he has no chest pain. He has not vomited. He states he typically requires some IV morphine to control his pain when the oxycodone is not working. PMHx/PSHx/Social Hx: See Below PHYSICAL EXAM: GENERAL: Patient is in no acute distress. HEENT: No acute trauma, normocephalic atraumatic, mucous membranes moist, moderate nasal congestion. NECK: No stridor, no adenopathy, no meningismus, trachea is midline. LUNGS: Dry cough noted. Scattered wheezing bilaterally, breath sounds diminished bilaterally, no respiratory distress. HEART: Without murmurs gallops or rubs, regular rate and rhythm. ABDOMEN: Soft, nontender, no peritonitis. EXTREMITIES: No cyanosis, full range of motion of all the joints without pain or difficulty. NEUROLOGIC: Oriented x 3, no acute motor or sensory deficits, no focal weakness. SKIN: No jaundice, no diaphoresis. DIFFERENTIAL DIAGNOSIS: Viral illness, bronchitis or pneumonia, dehydration, sickle cell flare, among others. EMERGENCY DEPARTMENT PROCEDURES: MEDICAL DECISION MAKING: There is a significant leukocytosis at around 19,000, this seems to be baseline for the patient when looking back at previous testing. The patient was anemic but this is baseline looking back at previous testing. Platelet count was normal. Reticulocyte count was elevated consistent with his sickle cell disease. No renal failure or significant electrolyte abnormality. Bilirubin was slightly elevated, this has been documented before. No concerning liver enzyme elevation. Urinalysis did not show findings of infection. Respiratory bio fire was positive for rhinovirus. Chest x-ray did not show pneumonia or CHF. On exam, patient had nasal congestion and some subtle wheezing. He was not febrile. Patient received IV Tylenol, IV saline, IV Zofran and IV morphine. He was given IV Toradol. He received additional IV morphine and was given a dose of IV ceftriaxone. Patient is still having ongoing back discomfort and some leg pain. He appears to be having a sickle cell painful crisis, likely brought on from the rhinovirus infection. I do think the patient requires a hospital stay as he is going require further pain control and hydration. I did speak with the patient, I spoke with his mother over the phone. I spoke with case management, the on-call hospitalist was consulted. Prior/Outside records/notes reviewed: Discharge summary note from 10/28/2022 discussing his admission for a sickle cell flare and mononucleosis. Imaging/x-ray results per my interpretation: Chest x-ray does not show mediastinal widening, pneumonia or pneumothorax. 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 Care/Management discussed with: Case management, the on-call hospitalist. Level of care consideration(s): After review of the information above and other included data: --I believe the patient requires escalation of care to admission DISPOSITION: Admission Past Med/Surg History Medical History Headache Sinusitis Sickle cell disease Surgical History H/O splenectomy Social History Smoking Status: Never smoker Tobacco Type: Cigarettes Hx Alcohol Use: Yes Hx Substance Use: No Preferred Language: Guatemalan Communication Ability: Effective Ecommerce Marketing Specialist Required: No Beliefs That Will Affect Care: None Current Living Situation: Alone Feels Safe at Home: Yes Assistive Devices: None Allergies Allergies Allergy/AdvReac Type Severity Reaction Status Date / Time No Known Allergies Allergy Verified 10/25/22 22:30 Home Meds Home Medications Medication Instructions Recorded Confirmed fluticasone propionate 50 2 spray intranasal DAILY 10/25/22 10/25/22 mcg/actuation nasal spray,suspension folic acid 1 mg tablet 1 mg PO DAILY 10/25/22 10/25/22 penicillin V potassium 250 mg 250 mg PO BID 10/25/22 10/25/22 tablet Results & Data (ED) Vital Signs Vital Signs - 24 hr 11/05/23 10:35 11/05/23 11:27 11/05/23 12:01 Temperature 36.0 C L Temperature Source Temporal Artery Scan Pulse Rate 87 Pulse Rate [Apical] 87 81 Pulse Rhythm [Apical] Regular Pulse Strength [Apical] Normal Respiratory Rate 19 18 18 Respiratory Effort / Characteristics Non-Labored Spontaneous Non-Labored Spontaneous Respiratory Depth Normal Normal Respiratory Pattern Regular Blood Pressure 149/77 H Blood Pressure [Right Arm] 162/82 H 129/75 Blood Pressure Mean 101 Blood Pressure Mean [Right Arm] 108 93 Blood Pressure Position [Right Arm] Semi-fowlers Pulse Oximetry 96 99 97 Oxygen Delivery Method Room Air Room Air Room Air Sepsis Recent Fever Within 48 Hours No Sepsis New/Unexplained Change in Mental Status N/A Sepsis Action Taken by Nursing No Action Required 11/05/23 12:07 Temperature Temperature Source Pulse Rate 97 H Pulse Rate [Apical] Pulse Rhythm [Apical] Pulse Strength [Apical] Respiratory Rate Respiratory Effort / Characteristics Respiratory Depth Respiratory Pattern Blood Pressure Blood Pressure [Right Arm] Blood Pressure Mean Blood Pressure Mean [Right Arm] Blood Pressure Position [Right Arm] Pulse Oximetry Oxygen Delivery Method Sepsis Recent Fever Within 48 Hours Sepsis New/Unexplained Change in Mental Status Sepsis Action Taken by Detention Medications Current Medication List: was personally reviewed by me Laboratory Data Attestation: I reviewed the patient's lab results. 11/05/23 10:40 11/05/23 10:40 Lab Results 11/05/23 11/05/23 Range/Units 10:40 Unknown WBC 19.90 H (4.8-10.8) K/ul RBC 3.80 L (4.70-6.10) M/uL Hgb 9.3 L (14.0-18.0) g/dl Hct 27.5 L (42.0-52.0) % MCV 72.4 L (80.0-100.0) fL MCH 24.5 L (25.0-34.0) pg MCHC 33.8 (32.0-36.0) g/dL RDW Std Deviation 38.5 (36.4-46.3) fL RDW Coeff of Anant 15.3 H (11.5-14.5) % Plt Count 293 (130-400) K/uL MPV 11.3 (9.4-12.4) fL Reticulocyte % (Auto) 7.06 H (0.50-2.00) % Reticulocyte # 0.270 H (0.020-0.100) 10^6/uL Absolute Nucleated RBC 0.44 H (0.00-0.12) K/uL Nucleated RBC % (auto) 2.2 % Neutrophils % (Manual) 82 % Lymphocytes % (Manual) 9 % Monocytes % (Manual) 6 % Metamyelocytes % (Man) 1 % Myelocytes % (Man) 2 % Neutrophils # (Manual) 16.32 H (1.40-6.50) K/uL Total Absolute Neuts 16.32 H (1.4-6.5) K/uL Lymphocytes # (Manual) 1.79 (1.2-3.4) K/uL Total Abs Lymphocytes 1.79 (1.2-3.4) K/uL Monocytes # (Manual) 1.19 H (0.11-0.59) K/uL Metamyelocytes # (Man) 0.20 H (0-0) K/uL Myelocytes # (Manual) 0.40 H (0-0) K/uL Polychromasia 1+ Sickle Cells 1+ Target Cells 2+ Sodium 136 (136-145) mmol/L Potassium 3.8 (3.5-5.1) mmol/L Chloride 104 (98-107) mmol/L Carbon Dioxide 24 (21-32) mmol/L Anion Gap 8 (3-11) BUN 11 (6-23) mg/dl Creatinine 0.60 (0.6-1.4) mg/dl Est Cr Clr Drug Dosing 160.9 ml/min Est GFR ( Amer) > 150.0 ml/min Est GFR (Non-Af Amer) 143.7 ml/min BUN/Creatinine Ratio 18.3 (10-20) Glucose 129 H (70-99(Fasting)) mg/dl Calcium 9.0 (8.6-10.3) mg/dl Magnesium 1.9 (1.7-2.4) mg/dl Total Bilirubin 1.8 H (0.2-1.0) mg/dl AST 30 (13-39) U/L ALT 18 (7-52) U/L Alkaline Phosphatase 89 (34-104) U/L Total Protein 7.9 (6.0-8.3) gm/dl Albumin 4.7 (3.4-5.0) gm/dl Globulin 3.2 (2.5-4.0) gm/dl Albumin/Globulin Ratio 1.5 (0.9-2) Urine Color Yellow Urine Appearance Clear (Clear) Urine pH 5.5 (4.5-7.5) Ur Specific [place] 1.018 (1.000-1.030) Urine Protein Negative (Negative) Urine Glucose (UA) Negative (Negative) Urine Ketones Negative (Negative) Urine Blood Negative (Negative) Urine Nitrite Negative (Negative) Urine Bilirubin Negative (Negative) Urine Urobilinogen Negative (Negative) Ur Leukocyte Esterase Negative (Negative) Adenovirus (PCR) Not Detected (NotDetected) B. pertussis DNA (PCR) Not Detected (NotDetected) B.parapertussis DNA PCR Not Detected (NotDetected) C. pneumoniae DNA (PCR) Not Detected (NotDetected) Coronavirus OC43 (PCR) Not Detected (NotDetected) Coronavirus HKU1 (PCR) Not Detected (NotDetected) Coronavirus 229E (PCR) Not Detected (NotDetected) SARS-CoV-2 (PCR) Not Detected (NotDetected) Coronavirus NL63 (PCR) Not Detected (NotDetected) Human Metapneumovir PCR Not Detected (NotDetected) Influenza Type A (PCR) Not Detected (NotDetected) Influenza Type B (PCR) Not Detected (NotDetected) M. pneumoniae (PCR) Not Detected (NotDetected) Parainfluenza 1 (PCR) Not Detected (NotDetected) Parainfluenza 2 (PCR) Not Detected (NotDetected) Parainfluenza 3 (PCR) Not Detected (NotDetected) Parainfluenza 4 (PCR) Not Detected (NotDetected) RSV (PCR) Not Detected (NotDetected) Entero/Rhino (PCR) DETECTED A (NotDetected) Administered Medications Acetaminophen (Ofirmev) 1,000 mg in 100 mls @ 400 mls/hr IV NOW STA Stop: 11/05/23 14:44 Last Infusion: 11/05/23 14:50 Dose: Infused Documented By: Admin: 11/05/23 14:35 Dose: 400 mls/hr Documented By: JAN Discontinued Medications Sodium Chloride (Nss) 500 mls @ 999 mls/hr IV .Q31M STA Stop: 11/05/23 11:10 Last Infusion: 11/05/23 11:39 Dose: Infused Documented By: Admin: 11/05/23 10:45 Dose: 999 mls/hr Documented By: MEGHANA Sodium Chloride (Nss) 1,000 mls @ 999 mls/hr IV .Q1H1M ONE Stop: 11/05/23 12:33 Last Infusion: 11/05/23 13:09 Dose: Infused Documented By: Admin: 11/05/23 11:48 Dose: 999 mls/hr Documented By: JAN Ketorolac Tromethamine (Ketorolac Tromethamine 15 Mg/Ml Vial) 10 mg IV NOW ONE Stop: 11/05/23 11:45 Last Admin: 11/05/23 11:55 Dose: 10 mg Documented By: JAN Morphine Sulfate (Morphine Sulfate 10 Mg/Ml Carp/Vial) 6 mg IV NOW STA Stop: 11/05/23 11:45 Last Admin: 11/05/23 11:54 Dose: 6 mg Documented By: JAN Morphine Sulfate (Morphine Sulfate 4 Mg/Ml 1 Ml Carp\Vial) 4 mg IV NOW STA Stop: 11/05/23 13:52 Last Admin: 11/05/23 13:54 Dose: 4 mg Documented By: JAN Ondansetron HCl (Ondansetron Inj 2 Mg/Ml 2 Ml Vial) 4 mg IV NOW STA Stop: 11/05/23 11:45 Last Admin: 11/05/23 11:52 Dose: 4 mg Documented By: JAN Imaging Data Radiologist's Impression: Chest X-Ray 11/05/23 11:43 XR chest 1V portable CLINICAL HISTORY: Cough. COMPARISON STUDY: Chest radiograph October 28, 2022. FINDINGS: Lung volumes are normal. Lungs are clear. There is no pneumothorax or pleural effusion. Cardiac size is normal. Mediastinal contours are normal. There is no evidence for pulmonary edema. Left upper quadrant surgical clips are incidentally noted. IMPRESSION: No acute cardiopulmonary findings. ACT 112: Negative or not required by law. Electronically signed by: Dimas Callahan M.D. 11/05/2023 12:11 PM Discharge Plan Visit Data Chief Complaint: Pain (Generalized) Stated Complaint: SICKEL CELL ED Provider: Delfino Stafford Discharge Problem: Sickle cell crisis, Back pain, Rhinovirus infection, Leukocytosis Patient Disposition: Admitted As Inpatient Condition: Fair Forms Stand Alone Forms: [facility] [employer] Prescriptions Prescriptions: No Action penicillin V potassium 250 mg tablet 250 mg PO BID folic acid 1 mg tablet 1 mg PO DAILY fluticasone propionate 50 mcg/actuation [place],Suspension 2 spray INTRANASAL DAILY Rx Instructions: administer into each nostril Referrals Referrals: PCP,NO [Primary Care Provider] - Discharge Problem: Back pain Qualifiers: Back pain location: back pain in unspecified location Chronicity: acute Back pain laterality: midline Qualified Code(s): M54.9 - Dorsalgia, unspecified Leukocytosis Qualifiers: Leukocytosis type: unspecified Qualified Code(s): D72.829 - Elevated white blood cell count, unspecified
[2023-11-05] MEDS: ONDANSETRON INJ 2 MG/ML 2 ML VIAL IV STA (11:52)
[2023-11-05] MEDS: MoRPHine SULFATE 10 MG/ML CARP/VIAL IV STA (11:54)
[2023-11-05 11:55] LABS: Reticulocyte % 7.06 % (0.50-2.00)
[2023-11-05] MEDS: KETOROLAC TROMETHAMINE 15 MG/ML VIAL IV ONE (11:55)
[2023-11-05 12:10] LABS: Appearance Urine Clear (Clear); Bilirubin Urine Negative (Negative); Blood Urine Negative (Negative); Color Urine Yellow; Glucose Urine UA Negative (Negative); Ketones Urine Negative (Negative); Leukocyte Esterase Urine Negative (Negative); Nitrite Urine Negative (Negative); Protein Urine Negative (Negative); Specific Gravity Urine 1.018 (1.000-1.030); Urobilinogen Urine Negative (Negative); pH Urine 5.5 (4.5-7.5)
[2023-11-05 12:12] LABS: Magnesium 1.9 mg/dl (1.7-2.4)
--- NOTE | 2023-11-05 12:12 | XRay Report ---
XR chest 1V portable CLINICAL HISTORY: Cough. COMPARISON STUDY: Chest radiograph October 28, 2022. FINDINGS: Lung volumes are normal. Lungs are clear. There is no pneumothorax or pleural effusion. Car diac size is normal. Mediastinal contours are normal. There is no evidence for pulmonary edema. Left upper quadrant surgical clips are incidentally noted. IMPRESSION: No acute cardiopulmonary findings. ACT 112: Negative or not required by law. Electronically signed by: Dimas Callahan M.D. 11/05/2023 12:11 PM
[2023-11-05 12:59] LABS: Adenovirus PCR Not Detected (NotDetected); Bordetella parapertussis PCR Not Detected (NotDetected); Bordetella pertussis PCR Not Detected (NotDetected); Chlamydia pneumoniae PCR Not Detected (NotDetected); Coronavirus 229E PCR Not Detected (NotDetected); Coronavirus CoV-2 (COVID19)PCR Not Detected (NotDetected); Coronavirus HKU1 PCR Not Detected (NotDetected); Coronavirus NL63 PCR Not Detected (NotDetected); Coronavirus OC43PCR Not Detected (NotDetected); Human Metapneumovirus PCR Not Detected (NotDetected); Influenza A PCR Not Detected (NotDetected); Influenza B PCR Not Detected (NotDetected); Mycoplasma pneumoniae PCR Not Detected (NotDetected); Parainfluenza Virus 1 PCR Not Detected (NotDetected); Parainfluenza Virus 2 PCR Not Detected (NotDetected); Parainfluenza Virus 3 PCR Not Detected (NotDetected); Parainfluenza Virus 4 PCR Not Detected (NotDetected); Respiratory Syncytial VirusPCR Not Detected (NotDetected); Rhinovirus/Enterovirus PCR DETECTED (NotDetected)
[2023-11-05] MEDS: MoRPHine SULFATE 4 MG/ML 1 ML CARP\\VIAL IV STA (13:54)
[2023-11-05] MEDS: ACETAMINOPHEN 1,000 MG/100 ML VIAL IV STA (14:35)
--- NOTE | 2023-11-05 14:42 | History & Physical Report ---
Date of Service November 05, 2023 Assessment & Plan (1) Rhinovirus infection: Plan: Rhino/adenovirus Supportive care Hemoglobin trended Chest x-ray negative for acute findings and specifically no signs of chest syndrome Patient is afebrile and with viral source. Received 1 dose of Rocephin for empiric prophylaxis. Will defer additional antibiotics at this time - No wheezing on exam, no hypoxia (2) Sickle cell crisis: Plan: Sickle cell crisis Chest x-ray without evidence of chest syndrome Received 1 dose of prophylactic Rocephin. S/p splenectomy, has received strep pneumo vaccinations Multimodal pain control as follows Tylenol every 4 hours 500 mg as needed Patient received 1x dose Toradol. Additional NSAIDs/toradol not recommended. Oxycodone 5 mg every 3 hours for moderate pain, breakthrough scaled morphine for third-line -Not on hydroxyuria. Outpt hematology followup. Folic acid continue daily S/p splenectomy Continued on folic acid and prophylactic penicillin VK to 50 mg p.o. twice daily Received empiric Rocephin x 1 as noted. (3) H/O splenectomy: Plan DVT prophylaxis: Increased risk of DVT with sickle cell history and s/p splenectomy. Renal function is normal. Discussed with patient and his mother who is very active in his sickle cell care and follow-up.She reports that they do not wish to pursue hydroxyurea at this time and outside of acute illnesses has not had any pain crises. Additionally expresses understanding of thromboembolic risk, do not wish for any DVT pharmacoprophylaxis. Ambulate as tolerated, SCDs are tolerated CODE STATUS: Full code Disposition: Medical/surgical Diet: Regular History of Present Illness Primary Care Provider: NO PCP Donnell is a 23-year-old male with a past medical history of sickle cell disease not on hydroxyurea who presents to the ER 8 days after last sickle flare in the setting of infectious mononucleosis who presents with cough, congestion, bilateral arm pain and mild back pain consistent with prior sickle cell flares. On admission he has a leukocytosis of 19.9, hemoglobin of 9.3, reticulocyte percentage of 7%/0.270 absolute and a bilirubin of 1.8. Renal function, potassium, sodium are normal. UA is uninfected appearing. Respiratory bio fire is positive for entero-/rhinovirus. He is recommended for admission for enterovirus/rhinovirus precipitating a sickle cell crisis. At time of admission he has had 1500 cc of normal saline, 10 mg of Toradol, and 10 total milligrams of morphine while in the ER Per pts mother does well with minimal narcotics after initial tylenol/toradol. Discussed with patient. He reports he was feeling well and finally feel like he had recovered completely from his prior illness and hospitalization this past Monday, but on Monday started to develop a dry nonproductive cough and increased pain in his legs, shoulders, and tailbone similar to prior sickle crisis. No shortness of breath at time of bedside assessment. Feels more comfortable since getting initial pain control and actually finds the hospital bed much more comfortable and finds it decompresses his shoulders more than his bed at home. He denies fever, chills. No nausea/vomiting. No diarrhea/constipation. Cough has been dry, has had some green sputum production earlier in the week but this lightened to mostly light green/clear in the last few days. He is not on hydroxyurea, would like to follow-up with a local hemat ologist on discharge. No other questions or concerns at bedside no chest pain or chest pressure Medical History: Reviewed Medications: Reviewed Surgical History: Reviewed Family history: Reviewed Allergies: Reviewed Social History: Reviewed Code Status: Full Allergies Allergy/AdvReac Type Severity Reaction Status Date / Time No Known Allergies Allergy Verified 11/05/23 15:09 Home Medications Medication Instructions Recorded Confirmed Type folic acid 1 mg tablet 1 mg PO DAILY 10/25/22 11/05/23 History ascorbic acid (vitamin C) 500 mg 0 mg PO DAILY 11/05/23 11/05/23 History tablet (Vitamin C) sole extract 500 mg capsule 500 mg PO DAILY 11/05/23 11/05/23 History Past Med/Surg History Medical History Headache Sinusitis Sickle cell disease Surgical History H/O splenectomy Social History Smoking Status: Never smoker Tobacco Type: Cigarettes Hx Alcohol Use: Yes Hx Substance Use: No Preferred Language: Ukrainian Communication Ability: Effective Public Relations Assistant Required: No Beliefs That Will Affect Care: None Current Living Situation: Alone Feels Safe at Home: Yes Assistive Devices: None Physical Exam Physical Exam: General: A&Ox3. NAD. Cooperative. HEENT: Atraumatic, normocephalic. PERLAA. No icterus. Pulm: CTAB A&P. -wheezes, -rales, -rhonchi. Symmetrical chest rise. No increased work of breathing. No respiratory distress. Cardiac: RRR, -mrg. Radial pulses intact and symmetrical. Abdominal: No focal tenderness, no guarding, nondistended, soft. BS present. Results & Data Results & Data Vital Signs (Past 12 Hours) Vital Signs Temp Pulse Pulse Resp BP BP Pulse Ox 11/05/23 12:07 97 H 11/05/23 12:01 81 18 129/75 97 11/05/23 11:27 87 18 162/82 H 99 11/05/23 10:35 36.0 C L 87 19 149/77 H 96 O2 Del Method 11/05/23 12:07 11/05/23 12:01 Room Air 11/05/23 11:27 Room Air 11/05/23 10:35 Room Air PG Care Time/CCT Total # of Minutes Spent Total Time Spent with Patient: Total time spent is greater than 50% in coordination of care (as documented) at patient's floor/unit and/or counseling patient: Coding Level of Care Code 92471 INT INP/OBS CARE 3/75MIN Diagnoses Rhinovirus infection B34.8 Sickle cell crisis D57.00 H/O splenectomy Z90.81
[2023-11-05] MEDS ORDERED: ALBUTEROL 0.083% NEBU SOLN 3 ML VIAL NEB PRN (15:14)
[2023-11-05] MEDS: cefTRIAXone SODIUM 2,000 MG/50 ML BAG IV STA (15:24)
[2023-11-05] MEDS: MoRPHine SULFATE 2 MG/ML CARP IV STA (16:55)
[2023-11-05] MEDS: LIDOCAINE 5% 1 PATCH TD STA (17:46)
[2023-11-05] MEDS ORDERED: MoRPHine SULFATE 2 MG/ML CARP IV PRN (20:18)
[2023-11-05] MEDS ORDERED: NALOXONE HCL 0.4 MG/1 ML VIAL/CARP IV PRN (20:18)
[2023-11-05] MEDS ORDERED: ONDANSETRON INJ 2 MG/ML 2 ML VIAL IV PRN (20:18)
[2023-11-05] MEDS: ACETAMINOPHEN 325 MG TAB PO PRN (21:09)
[2023-11-05] MEDS: oxyCODONE HCL IR 5 MG TAB (IMMEDIATE RELEASE) PO PRN (21:09)
[2023-11-05] MEDS: PENICILLIN V POTASSIUM 250 MG TAB PO SCH (21:09)
[2023-11-05] MEDS: LACTATED RINGER'S 1,000 ML IV SCH (21:18)
[2023-11-05] MEDS: MoRPHine SULFATE 4 MG/ML 1 ML CARP\\VIAL IV PRN (22:48)
--- NOTE | 2023-11-06 07:21 | Hospitalist Progress Note ---
Date of Service November 06, 2023 Assessment & Plan (1) Rhinovirus infection: Plan: Rhino/adenovirus on biofire exacerbating sickle cell crisis Chest x-ray negative for acute findings and specifically no signs of chest syndrome defer additional antibiotics at this time - No wheezing on exam, no hypoxia (2) Sickle cell crisis: Plan: Sickle cell crisis Chest x-ray without evidence of chest syndrome Received 1 dose of prophylactic Rocephin. S/p splenectomy, has received strep pneumo vaccinations Multimodal pain control -Toradol 30 mg iv q 6 hours Tylenol every 4 hours 500 mg as needed Patient received 1x dose Toradol. Additional NSAIDs/toradol not recommended. Oxycodone 5-10 mg every 3 hours for moderate pain, breakthrough scaled morphine for third-line -. Outpt hematology followup. Folic acid continue daily S/p splenectomy Continued on folic acid and prophylactic penicillin VK to 50 mg p.o. twice daily Received empiric Rocephin x 1 as noted. (3) H/O splenectomy: Plan DVT prophylaxis: Increased risk of DVT with sickle cell history and s/p splenectomy. Renal function is normal. Discussed with patient and his mother who is very active in his sickle cell care and follow-up. She reports that they do not wish to pursue hydroxyurea at this time and outside of acute illnesses has not had any pain crises. Additionally expresses understanding of thromboembolic risk, do not wish for any DVT pharmaco prophylaxis. Ambulate as tolerated, SCDs are tolerated CODE STATUS: Full code Diet: Regular Admission and Anticipated Discharge Date Admission Date: November 05, 2023 Subjective pt has good pain control at rest but painful joints and muscles with movement no chest pain no shortness of breath Physical Exam Physical Exam: cardiac exam is regular lungs are clear no joint effusions Results & Data Results & Data Vital Signs (Past 12 Hours) Vital Signs Temp Pulse Pulse Resp BP BP Pulse Ox 11/06/23 07:18 99.0 F 87 20 141/75 H 93 11/05/23 21:40 98.2 F 81 16 108/57 L 96 11/05/23 20:50 86 18 82 L 11/05/23 20:40 91 H 13 96 11/05/23 20:30 90 21 98 11/05/23 20:20 85 21 96 11/05/23 20:18 102 H 18 98 11/05/23 20:18 93 H 19 140/62 97 11/05/23 20:10 93 H 19 97 11/05/23 20:09 83 11/05/23 20:00 108 H 17 11/05/23 19:50 93 H 22 11/05/23 19:40 86 15 95 11/05/23 19:30 84 17 97 11/05/23 19:20 94 H 17 99 O2 Del Method 11/06/23 07:18 Room Air 11/05/23 21:40 Room Air 11/05/23 20:50 11/05/23 20:40 11/05/23 20:30 11/05/23 20:20 11/05/23 20:18 11/05/23 20:18 11/05/23 20:10 11/05/23 20:09 11/05/23 20:00 11/05/23 19:50 11/05/23 19:40 11/05/23 19:30 11/05/23 19:20 Laboratory Results Reviewed CBC reviewed chemistry PG Care Time/CCT Total # of Minutes Spent Total Time Spent with Patient: Total time spent is greater than 50% in coordination of care (as documented) at patient's floor/unit and/or counseling patient: Coding Level of Care Code 80189 SUB INP/OBS CARE 2/35MIN Diagnoses Rhinovirus infection B34.8 Sickle cell crisis D57.00 H/O splenectomy Z90.81
[2023-11-06] MEDS: FOLIC ACID 1 MG TAB PO SCH (07:34)
[2023-11-06 07:52] LABS: Basophils # (auto) 0.07 K/uL (0.00-0.20); Basophils % (auto) 0.4 %; Eosinophils # (auto) 0.01 K/uL (0.00-0.50); Eosinophils % (auto) 0.1 %; Hematocrit (blood only) 26.5 % (42.0-52.0); Hemoglobin 8.8 g/dl (14.0-18.0); Immature Granulocytes # (auto) 0.65 K/uL (0.01-0.20); Immature Granulocytes % (auto) 3.3 %; Lymphocytes # (auto) 1.24 K/uL (1.20-3.40); Lymphocytes % (auto) 6.3 %; Mean Corpuscular Hemoglobin 24.3 pg (25.0-34.0); Mean Corpuscular Hgb Conc 33.2 g/dL (32.0-36.0); Mean Corpuscular Volume 73.2 fL (80.0-100.0); Mean Platelet Volume 11.1 fL (9.4-12.4); Monocytes # (auto) 1.79 K/uL (0.11-0.59); Monocytes % (auto) 9.1 %; Neutrophils % (auto) 80.8 %; Nucleated RBC % (auto) 8.1 %; Platelet Count 250 K/uL (130-400); RDW Coefficient of Variation 14.7 % (11.5-14.5); RDW Standard Deviation 38.2 fL (36.4-46.3); Red Blood Count 3.62 M/uL (4.70-6.10); White Blood Count 19.76 K/ul (4.8-10.8)
[2023-11-06 08:10] LABS: Anion Gap 7 (3-11); BUN Creatinine Ratio 12.5 (10-20); Blood Urea Nitrogen 7 mg/dl (6-23); Calcium 8.6 mg/dl (8.6-10.3); Carbon Dioxide 26 mmol/L (21-32); Chloride 99 mmol/L (98-107); Est GFR (African American) > 150.0 ml/min; Est GFR (Non-African American) 147.9 ml/min; Glucose 115 mg/dl (70-99(Fasting)); Magnesium 1.7 mg/dl (1.7-2.4); Potassium 3.9 mmol/L (3.5-5.1); Sodium 132 mmol/L (136-145)
[2023-11-06 08:28] LABS: Hypochromasia Present; Sickle Cells 1+; Target Cells 1+
[2023-11-06] MEDS: CETIRIZINE HCL 10 MG TABLET PO ONE (12:53)
[2023-11-06] MEDS: KETOROLAC 30 MG/ML VIAL IV PRN (13:53)
[2023-11-07 06:43] LABS: Basophils # (auto) 0.02 K/uL (0.00-0.20); Basophils % (auto) 0.1 %; Eosinophils # (auto) 0.05 K/uL (0.00-0.50); Eosinophils % (auto) 0.4 %; Hematocrit (blood only) 25.4 % (42.0-52.0); Hemoglobin 8.7 g/dl (14.0-18.0); Immature Granulocytes # (auto) 0.12 K/uL (0.01-0.20); Immature Granulocytes % (auto) 0.9 %; Lymphocytes # (auto) 1.49 K/uL (1.20-3.40); Mean Corpuscular Hemoglobin 24.5 pg (25.0-34.0); Mean Corpuscular Hgb Conc 34.3 g/dL (32.0-36.0); Mean Corpuscular Volume 71.5 fL (80.0-100.0); Mean Platelet Volume 11.3 fL (9.4-12.4); Monocytes # (auto) 1.15 K/uL (0.11-0.59); Monocytes % (auto) 8.5 %; Neutrophils # (auto) 10.67 K/uL (1.40-6.50); Neutrophils % (auto) 79.1 %; Platelet Count 206 K/uL (130-400); RDW Coefficient of Variation 14.1 % (11.5-14.5); RDW Standard Deviation 34.8 fL (36.4-46.3); Red Blood Count 3.55 M/uL (4.70-6.10)
[2023-11-07 06:55] LABS: Anion Gap 6 (3-11); BUN Creatinine Ratio 17.5 (10-20); Blood Urea Nitrogen 11 mg/dl (6-23); Calcium 8.5 mg/dl (8.6-10.3); Carbon Dioxide 29 mmol/L (21-32); Chloride 101 mmol/L (98-107); Creatinine Clr Calc Pharmacy 154.7 ml/min; Est GFR (African American) > 150.0 ml/min; Est GFR (Non-African American) 140.9 ml/min; Glucose 98 mg/dl (70-99(Fasting)); Potassium 3.9 mmol/L (3.5-5.1); Sodium 136 mmol/L (136-145)
[2023-11-07 07:07] LABS: Nucleated RBC # (auto) 1.71 K/uL (0.00-0.12); Nucleated RBC % (auto) 12.7 %
[2023-11-07 07:09] LABS: Sickle Cells 1+
[2023-11-07 07:11] LABS: Howell-Jolly Bodies 1+; Polychromasia 2+; Target Cells 2+
--- NOTE | 2023-11-07 14:49 | Discharge Summary ---
Date of Service November 07, 2023 Admission HPI Per Admitting Provider Donnell is a 23-year-old male with a past medical history of sickle cell disease not on hydroxyurea who presents to the ER 8 days after last sickle flare in the setting of infectious mononucleosis who presents with cough, congestion, bilateral arm pain and mild back pain consistent with prior sickle cell flares. On admission he has a leukocytosis of 19.9, hemoglobin of 9.3, reticulocyte percentage of 7%/0.270 absolute and a bilirubin of 1.8. Renal function, potassium, sodium are normal. UA is uninfected appearing. Respiratory bio fire is positive for entero-/rhinovirus. He is recommended for admission for enterovirus/rhinovirus precipitating a sickle cell crisis. At time of admission he has had 1500 cc of normal saline, 10 mg of Toradol, and 10 total milligrams of morphine while in the ER Per pts mother does well with minimal narcotics after initial tylenol/toradol. Discussed with patient. He reports he was feeling well and finally feel like he had recovered completely from his prior illness and hospitalization this past Monday, but on Monday started to develop a dry nonproductive cough and increased pain in his legs, shoulders, and tailbone similar to prior sickle crisis. No shortness of breath at time of bedside assessment. Feels more comfortable since getting initial pain control and actually finds the hospital bed much more comfortable and finds it decompresses his shoulders more than his bed at home. He denies fever, chills. No nausea/vomiting. No diarrhea/constipation. Cough has been dry, has had some green sputum production earlier in the week but this lightened to mostly light green/clear in the last few days. He is not on hydroxyurea, would like to follow-up with a local hull inspector on discharge. No other questions or concerns at bedside no chest pain or chest pressure Medical History: Reviewed Medications: Reviewed Surgical History: Reviewed Family history: Reviewed Allergies: Reviewed Social History: Reviewed Code Status: Full Principal Diagnosis Rhinovirus sickle cell crisis Discharge Exam pts lungs are clear cardiac exam is regular joints are without, effusion swelling or warmth c/o tailbone pain Discharge Data Allergies Allergy/AdvReac Type Severity Reaction Status Date / Time No Known Allergies Allergy Verified 11/05/23 15:09 Consultations 11/05/23 14:07 ED Decision to Admit Stat Hospital Course (1) Rhinovirus infection: Rhino/adenovirus on biofire exacerbating sickle cell crisis Chest x-ray negative for acute findings and specifically no signs of chest syndrome defer additional antibiotics at this time - No wheezing on exam, no hypoxia (2) Sickle cell crisis: Sickle cell crisis Chest x-ray without evidence of chest syndrome Received 1 dose of prophylactic Rocephin. S/p splenectomy, has received strep pneumo vaccinations Multimodal pain control -Patient be discharged on scheduled Tylenol and as needed tramadol for mild to moderate pain and oxycodone for moderate to severe pain. -. Outpt hematology followup. Folic acid continue daily S/p splenectomy Continued on folic acid and prophylactic penicillin VK to 50 mg p.o. twice daily Received empiric Rocephin x 1 as noted. (3) H/O splenectomy: Plan DVT prophylaxis: Increased risk of DVT with sickle cell history and s/p splenectomy. Renal function is normal. Discussed with patient and his mother who is very active in his sickle cell care and follow-up. She reports that they do not wish to pursue hydroxyurea at this time and outside of acute illnesses has not had any pain crises. Additionally expresses understanding of thromboembolic risk, do not wish for any DVT pharmaco prophylaxis. Ambulate as tolerated, SCDs are tolerated CODE STATUS: Full code Patient follow-up with Dr. Echavarria Total Time Total Time Spent Total Time Spent (In Minutes): It required greater than 30 minutes to prepare this patient for discharge. Discharge Plan Discharge Items Patient Disposition: Home - Self-Care Reason For Visit: RHINO/ADENOVIRUS + SICKLE CRISIS Discharge Diagnosis: Rhinovirus infection sickle cell crisis Condition on Discharge: Fair Activity: Per Instructions section Activity Comment: slowly increase physical activity Non-emergency contact: Primary Care Provider and Specialist Call non-emergency contact if: your symptoms worsen Follow-up/Referrals: Tennille Echavarria MD [Physician] - PCP,NO [Primary Care Provider] - Diet: Regular Addtl Attending Provider Instructions: rest and recover good hydration use Tylenol three times a day until your pain is completely gone use tramadol and oxycodone carefully watch for constipation for your anemia please have a multiple vitamin with iron 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 sole extract 500 mg Capsule 500 mg PO DAILY Discharge Orders: Discharge Order (Routine); Ordered 11/07/23 Ordered By: Kwadwo Sepulveda Admission Data Admit Date/Time: 11/05/23 14:49 Attending Provider: Kwadwo Sepulveda Admit Provider: Dany Card Primary Care Provider: PCP,NO Other Providers: Dany Card Other Interventions: Discharge Summary Assessment (RN) Last Done: 11/07/23 13:22 Coding Level of Care Code 54092 INP/OBS DISCH >30 MIN Diagnoses Rhinovirus infection B34.8 Sickle cell crisis D57.00 H/O splenectomy Z90.81
== END 2023-11-07 15:18 | disposition home or self-care (01) | DRG 812 ==
LOC: ED 10:31 → SUATTDRO 14:49 → EDINP 14:49 → 3E 21:35
DX: B34.0 Adenovirus infection, unspecified; Z79.899 Other long term (current) drug therapy; D57.00 Hb-SS disease with crisis, unspecified; B34.8 Other viral infections of unspecified site; Z11.52 Encounter for screening for COVID-19; Z90.81 Acquired absence of spleen

== ENCOUNTER 2024-10-07 14:53 | Observation (INO) ==
[2024-10-07 15:22] LABS: Hematocrit (blood only) 31.2 % (42.0-52.0); Hemoglobin 10.5 g/dl (14.0-18.0); Mean Corpuscular Hemoglobin 24.4 pg (25.0-34.0); Mean Corpuscular Hgb Conc 33.7 g/dL (32.0-36.0); Mean Corpuscular Volume 72.6 fL (80.0-100.0); Mean Platelet Volume 10.8 fL (9.4-12.4); Nucleated RBC % (auto) 2.5 %; Platelet Count 262 K/uL (130-400); RDW Coefficient of Variation 15.9 % (11.5-14.5); RDW Standard Deviation 39.6 fL (36.4-46.3); White Blood Count 20.27 K/ul (4.8-10.8)
[2024-10-07 15:34] LABS: Albumin Globulin Ratio 1.7 (0.9-2); Albumin Level 4.9 gm/dl (3.4-5.0); BUN Creatinine Ratio 15.3 (10-20); Bilirubin,Total 2.5 mg/dl (0.2-1.0); Calcium 8.8 mg/dl (8.6-10.3); Creatinine Clr Calc Pharmacy 162.8 ml/min; Globulin 2.9 gm/dl (2.5-4.0); Potassium 3.8 mmol/L (3.5-5.1); Total Protein 7.8 gm/dl (6.0-8.3)
[2024-10-07 15:49] LABS: Basophils # (auto) 0.06 K/uL (0.00-0.20); Basophils % (auto) 0.3 %; Eosinophils # (auto) 0.01 K/uL (0.00-0.50); Howell-Jolly Bodies 1+; Immature Granulocytes # (auto) 1.46 K/uL (0.01-0.20); Immature Granulocytes % (auto) 7.2 %; Lymphocytes # (auto) 1.66 K/uL (1.20-3.40); Lymphocytes % (auto) 8.2 %; Monocytes # (auto) 1.26 K/uL (0.11-0.59); Monocytes % (auto) 6.2 %; Neutrophils # (auto) 15.82 K/uL (1.40-6.50); Neutrophils % (auto) 78.1 %; Polychromasia 1+; Sickle Cells 1+; Target Cells 2+
--- NOTE | 2024-10-07 16:07 | XRay Report ---
Clinical History: Chest pain Technique: A frontal view of the chest was obtained Findings: There are no confluent pulmonary infiltrates. The heart size is within normal limits. No pleural effusion or pneumothorax is seen. There is no definite pulmonary nodule. No fracture is noted. No foreign body is seen Impression: No active disease Electronically signed by Timoteo Ridley 10-07-2024 4:07 PM
--- NOTE | 2024-10-07 16:16 | Emergency Department Note ---
Impression & Plan Sickle cell anemia with crisis ED Provider Note NAME: JANIE MCCALL III AGE: 24 SEX: Male INFORMANT: Patient ED PROVIDER(S): Brady Durán MD CHIEF COMPLAINT: Generalized pain, sickle cell PLAN: Disposition: Admitted Outpatient prescription management: none Referral: None MEDICAL DECISION MAKING: Patient presented because of generalized pain and has a history of sickle cell crisis. He was quite uncomfortable. An IV was established and he was hydrated. Blood work was obtained. Patient's pain was treated with IV morphine and he was given a dose of IV Zofran. Patient was found to have a mild anemia but improved since prior. He did have a moderate leukocytosis. He had some mild chest discomfort but ECG did not reveal any acute findings and cardiac troponin were negative. Patient does not have a fever. No signs of acute chest on chest imaging. Chemistry panel was rather unremarkable. Patient did require several doses of IV morphine and also was given Toradol as he stated Toradol worked well in the past. Patient was still uncomfortable and given his pain requirements I did discuss further management in the hospital. Patient was in agreement. [facility], Dr. Raymundo. Case discussed and diagnostics were reviewed. He evaluated the patient in the ER and admitted him for further management. I refer you to the EMR for further details. Care/management discussed with: manager hotel Level of care consideration(s): After review of the information above and other included data, I feel the patient requires escalation of care to admission Triage Nursing notes: reviewed and agree them. Vital Signs: reviewed and remarkable for no significant abnormalities Additional History obtained from: I did discuss the patient's history with his mother on the phone. She noted he has done well in the past with morphine and Toradol. Chronic Medical/Social Conditions affecting care: Sickle cell disease Prior/ Outside/ External records reviewed: Prior ED visit and hospitalization record reviewed from October 2023. Patient appeared to have a sickle cell crisis triggered by viral infection. He did well with usual management. Differential Diagnosis: Acute chest syndrome, sickle cell crisis, aplastic anemia, SBI, Cardiac ischemia, aortic dissection, pulmonary embolism, pneumothorax, pneumonia, pericarditis, myocarditis, cholecystitis, pancreatitis, musculoskeletal, as well as other pathologies. Diagnostics, independently interpreted by me: ECG: Twelve-lead ECG reveals a normal sinus rhythm at [address] No ST elevation or depression. No pericarditis. Cardiac Monitoring: Cardiac monitoring ordered by me: The patient was placed on continuous cardiac monitoring and observed. It revealed a normal sinus rhythm at 87 beats per minute without ectopy or evidence of dysrhythmia. Medical decision rules: none Imaging studies: Chest x-ray. Findings: A chest x-ray was performed and revealed no pneumothorax, effusion, infiltrate, pulmonary edema, free air under the diaphragm, or wide mediastinum. Impression: No acute disease. HPI: 24 year old Male arrives for evaluation of generalized body pains. This started this morning and is feeling like a typical sickle cell crisis. Last one about 10 months ago. The patient also notes the following associated symptoms, chest pain. The patient has tried oxycodone for relieving factors. Current pain is rated as 10/10. Pt denies LOC, headache, fevers, chills, diaphoresis, visual changes, neck pain, breathing difficulties, nausea, vomiting, abdominal pain,melena, hematochezia, urinary symptoms, numbness, weakness, lymphadenopathy, rash, or other complaints. PAST MEDICAL HISTORY: See Below, sickle cell PAST SURGICAL HISTORY: See Below, splenectomy SOCIAL HISTORY: See Below, [employer] student HOME MEDICATIONS: See Below ALLERGIES: See Below VITALS: See Below PHYSICAL EXAMINATION: GENERAL: Awake, alert, uncomfortable-appearing, in moderate distress HENT: Normocephalic, atraumatic. Oropharynx unremarkable. EYES: Normal conjunctiva. Sclera non-icteric. NECK: Inspection normal. Non-tender. Supple. No nuchal rigidity. FROM. No masses. RESPIRATORY: Clear to auscultation. No wheezes. No rales. Normal respiratory effort. CARDIAC: Normal rate. Normal rhythm. No murmurs. No rubs. Extremities warm and well perfused. Pulses equal. No JVD. GI: Soft, non-distended. No tenderness to palpation. No rebound or guarding. No masses. RECTAL: Deferred. MUSCULOSKELETAL: Atraumatic. Chest examination reveals no tenderness. The back is symmetrical on inspection without obvious abnormality. There is no CVA tenderness to palpation. No joint edema. LOWER EXTREMITIES: Calves are equal size bilaterally and non-tender. No edema. No discoloration. NEURO: Normal sensorium. No sensory or motor deficits noted. SKIN: No rash or jaundice noted. PROCEDURES: none CRITICAL CARE: none OBSERVATION NOTE: none Past Med/Surg History Problem List (Updated 10/07/24 @ 18:45 by Bam Raymundo MD) Microcytic anemia Microcytic anemia Sickle cell anemia with crisis (Acute) H/O splenectomy Leukocytosis (Acute) Rhinovirus infection (Acute) Back pain (Acute) Sickle cell crisis (Acute) Mononucleosis Sickle cell crisis (Acute) Medical History Headache Sinusitis Sickle cell disease Surgical History H/O splenectomy Social History Smoking Status: Never smoker Tobacco Type: Cigarettes Hx Alcohol Use: Yes Alcohol type: hard liquor Hx Substance Use: Yes Preferred Language: Czech Communication Ability: Effective Intellectual Property Counsel Required: No Beliefs That Will Affect Care: None Current Living Situation: Alone Current Living Situation Comment: [employer]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 Feels Safe at Home: Yes Assistive Devices: None Allergies Allergies Allergy/AdvReac Type Severity Reaction Status Date / Time No Known Allergies Allergy Verified 11/05/23 15:09 Home Meds Home Medications Medication Instructions Recorded Confirmed folic acid 1 mg tablet 1 mg PO DAILY 10/25/22 11/05/23 ascorbic acid (vitamin C) 500 mg 0 mg PO DAILY 11/05/23 11/05/23 tablet (Vitamin C) sole extract 500 mg capsule 500 mg PO DAILY 11/05/23 11/05/23 Previous Rx's Medication Instructions Recorded oxycodone 5 mg capsule 5 mg PO Q6H PRN moderate to severe 11/07/23 pain #14 caps tramadol 50 mg tablet 50 mg PO Q6H PRN pain #20 tabs 11/07/23 Results & Data (ED) Vital Signs Vital Signs - 24 hr 10/07/24 14:56 10/07/24 16:43 10/07/24 17:00 Temperature 36.4 C L Temperature Source Temporal Artery Scan Pulse Rate 95 H 80 96 H Pulse Rate from SpO2 Sensor 96 H Respiratory Rate 20 19 Blood Pressure 127/73 125/73 Blood Pressure Mean 91 89 Pulse Oximetry 97 100 Oxygen Delivery Method Room Air Oxygen Flow Rate Sepsis Recent Fever Within 48 Hours No Sepsis New/Unexplained Change in Mental Status N/A Sepsis Action Taken by Nursing No Action Required 10/07/24 17:06 10/07/24 17:30 Temperature Temperature Source Pulse Rate 87 99 H Pulse Rate from SpO2 Sensor 88 98 H Respiratory Rate 19 24 Blood Pressure Blood Pressure Mean Pulse Oximetry 100 100 Oxygen Delivery Method Nasal Cannula Nasal Cannula Oxygen Flow Rate 2 2 Sepsis Recent Fever Within 48 Hours Sepsis New/Unexplained Change in Mental Status Sepsis Action Taken by Nursing Laboratory Data 10/07/24 15:04 10/07/24 15:04 Lab Results 10/07/24 Range/Units 15:04 WBC 20.27 H (4.8-10.8) K/ul RBC 4.30 L (4.70-6.10) M/uL Hgb 10.5 L (14.0-18.0) g/dl Hct 31.2 L (42.0-52.0) % MCV 72.6 L (80.0-100.0) fL MCH 24.4 L (25.0-34.0) pg MCHC 33.7 (32.0-36.0) g/dL RDW Std Deviation 39.6 (36.4-46.3) fL RDW Coeff of Anant 15.9 H (11.5-14.5) % Plt Count 262 (130-400) K/uL MPV 10.8 (9.4-12.4) fL Immature Gran % (Auto) 7.2 % Neut % (Auto) 78.1 % Lymph % (Auto) 8.2 % Gulf % (Auto) 6.2 % Eos % (Auto) 0.0 % Baso % (Auto) 0.3 % Reticulocyte % (Auto) 8.35 H (0.50-2.00) % Neut # (Auto) 15.82 H (1.40-6.50) K/uL Lymph # (Auto) 1.66 (1.20-3.40) K/uL Gulf # (Auto) 1.26 H (0.11-0.59) K/uL Eos # (Auto) 0.01 (0.00-0.50) K/uL Baso # (Auto) 0.06 (0.00-0.20) K/uL Reticulocyte # 0.400 H (0.020-0.100) 10^6/uL Immature Gran # (Auto) 1.46 H (0.01-0.20) K/uL Absolute Nucleated RBC 0.50 H (0.00-0.12) K/uL Nucleated RBC % (auto) 2.5 % Polychromasia 1+ Sickle Cells 1+ Target Cells 2+ [place] Bodies 1+ Sodium 137 (136-145) mmol/L Potassium 3.8 (3.5-5.1) mmol/L Chloride 105 (98-107) mmol/L Carbon Dioxide 23 (21-32) mmol/L Anion Gap 9 (3-11) BUN 9 (6-23) mg/dl Creatinine 0.59 L (0.6-1.4) mg/dl Est Cr Clr Drug Dosing 162.8 ml/min eGFR 140.68 BUN/Creatinine Ratio 15.3 (10-20) Glucose 110 H (70-99(Fasting)) mg/dl Calcium 8.8 (8.6-10.3) mg/dl Total Bilirubin 2.5 H (0.2-1.0) mg/dl AST 26 (13-39) U/L ALT 17 (7-52) U/L Alkaline Phosphatase 92 (34-104) U/L Troponin I High Sens 4.5 (0-20) pg/ml Total Protein 7.8 (6.0-8.3) gm/dl Albumin 4.9 (3.4-5.0) gm/dl Globulin 2.9 (2.5-4.0) gm/dl Albumin/Globulin Ratio 1.7 (0.9-2) Administered Medications Morphine Sulfate (Morphine Sulfate 4 Mg/Ml 1 Ml Carp\Vial) 4 mg IV Q15M PRN PRN Reason: Pain Stop: 10/21/24 16:59 Last Admin: 10/07/24 18:03 Dose: 4 mg Documented By: Admin: 10/07/24 17:06 Dose: 4 mg Documented By: RAMA Discontinued Medications Sodium Chloride (Nss) 1,000 mls @ 999 mls/hr IV .Q1H1M MICHI Stop: 10/07/24 18:15 Last Infusion: 10/07/24 18:20 Dose: Infused Documented By: Admin: 10/07/24 17:06 Dose: 999 mls/hr Documented By: Infusion: 10/07/24 17:06 Dose: Infused Documented By: Admin: 10/07/24 16:22 Dose: 999 mls/hr Documented By: RAMA Ketorolac Tromethamine (Ketorolac Tromethamine 15 Mg/Ml Vial) 15 mg IV NOW ONE Stop: 10/07/24 17:01 Last Admin: 10/07/24 17:28 Dose: 15 mg Documented By: RAMA Morphine Sulfate (Morphine Sulfate 10 Mg/Ml Carp/Vial) 8 mg IV Q15M PRN PRN Reason: pain Stop: 10/21/24 16:12 Last Admin: 10/07/24 16:26 Dose: 8 mg Documented By: RAMA Ondansetron HCl (Ondansetron Inj 2 Mg/Ml 2 Ml Vial) 4 mg IV NOW STA Stop: 10/07/24 16:17 Last Admin: 10/07/24 16:22 Dose: 4 mg Documented By: RAMA Imaging Data Radiologist's Impression: Chest X-Ray 10/07/24 14:59 Clinical History: Chest pain Technique: A frontal view of the chest was obtained Findings: There are no confluent pulmonary infiltrates. The heart size is within normal limits. No pleural effusion or pneumothorax is seen. There is no definite pulmonary nodule. No fracture is noted. No foreign body is seen Impression: No active disease Electronically signed by Timoteo Ridley 10-07-2024 4:07 PM Discharge Plan Visit Data Chief Complaint: Pain (Generalized) Stated Complaint: PAIN CRISIS, L ARM LEG PAIN, CHEST PN, SICKLE CELL ED Provider: Brady Durán Discharge Problem: Sickle cell anemia with crisis Forms Stand Alone Forms: My [facility] [employer] Prescriptions Prescriptions: No Action folic acid 1 mg tablet 1 mg PO DAILY ascorbic acid (vitamin C) [Vitamin C] 500 mg Tablet 0 mg PO DAILY Rx Instructions: Pt unsure of strength at this date/time. sole extract 500 mg Capsule 500 mg PO DAILY tramadol 50 mg tablet 50 mg PO Q6H PRN (Reason: pain) Qty: 20 0RF oxycodone 5 mg capsule 5 mg PO Q6H PRN (Reason: moderate to severe pain) Qty: 14 0RF Referrals Referrals: PCP,NO [Physician] -
[2024-10-07] MEDS: ONDANSETRON INJ 2 MG/ML 2 ML VIAL IV STA (16:22)
[2024-10-07] MEDS: SODIUM CHLORIDE 0.9% 1,000 ML IV SCH ×2 (16:22→21:39)
[2024-10-07] MEDS: MoRPHine SULFATE 10 MG/ML CARP/VIAL IV PRN (16:26)
[2024-10-07] MEDS: MoRPHine SULFATE 4 MG/ML 1 ML CARP\\VIAL IV PRN ×2 (17:06→23:37)
[2024-10-07] MEDS: KETOROLAC TROMETHAMINE 15 MG/ML VIAL IV ONE (17:28)
[2024-10-07 18:32] LABS: Reticulocyte % 8.35 % (0.50-2.00)
[2024-10-07 18:40] LABS: Troponin I High Sensitivity 4.5 pg/ml (0-20)
--- NOTE | 2024-10-07 18:46 | History & Physical Report ---
Date of Service October 07, 2024 Assessment & Plan (1) Sickle cell anemia with crisis: Plan: IV fluids. Parenteral pain medication. Supplemental oxygen. (2) Microcytic anemia: Plan: Check iron levels. Parenteral supplementation if iron level is low (3) H/O splenectomy: Plan: Supportive care Plan Hopeful discharge to home tomorrowOctober 08 History of Present Illness Chief Complaint: sickle cell crisis` Primary Care Provider: [facility] 24-year-old black male with sickle cell anemia. He appears to have developed sickle cell crisis at this time and has been treated in the ER with IV fluids, oxygen, parenteral pain medication. He is still symptomatic and unable to be discharged to home. He is placed on observation at this time for further evaluation and treatment. No obvious source of infection. No fever. Chest x- ray is clear. Allergies Allergy/AdvReac Type Severity Reaction Status Date / Time No Known Allergies Allergy Verified 11/05/23 15:09 Home Medications Medication Instructions Recorded Confirmed Type folic acid 1 mg tablet 1 mg PO DAILY 10/25/22 11/05/23 History ascorbic acid (vitamin C) 500 mg 0 mg PO DAILY 11/05/23 11/05/23 History tablet (Vitamin C) sole extract 500 mg capsule 500 mg PO DAILY 11/05/23 11/05/23 History oxycodone 5 mg capsule 5 mg PO Q6H PRN moderate to severe 11/07/23 Rx pain #14 caps tramadol 50 mg tablet 50 mg PO Q6H PRN pain #20 tabs 11/07/23 Rx Past Med/Surg History Problem List (Updated 10/07/24 @ 18:45 by Bam Raymundo MD) Microcytic anemia Microcytic anemia Sickle cell anemia with crisis (Acute) H/O splenectomy Leukocytosis (Acute) Rhinovirus infection (Acute) Back pain (Acute) Sickle cell crisis (Acute) Mononucleosis Sickle cell crisis (Acute) Medical History Headache Sinusitis Sickle cell disease Surgical History H/O splenectomy Social History Smoking Status: Never smoker Tobacco Type: Cigarettes Hx Alcohol Use: Yes Alcohol type: hard liquor Hx Substance Use: Yes Preferred Language: Tamazight Communication Ability: Effective Electronic Equipment Maint Tech Required: No Beliefs That Will Affect Care: None Current Living Situation: Alone Current Living Situation Comment: [employer]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 Feels Safe at Home: Yes Assistive Devices: None Review of Systems 2 Review of Systems: Constitutionalno fever or chills ENTno blurred vision, no double vision, no epistaxis, no sore throat Respiratoryno cough, no wheezing, no shortness of breath Cardiacno palpitations, no chest pain, no syncope Mounika nausea, vomiting, diarrhea, melena, hematochezia GUno urinary retention, no urinary incontinence, no dysuria, no hematuria Musculoskeletalno joint pain, no muscle tenderness Skinno bruising, no rashes, no pruritus Neurono isolated weakness, no paresthesia, no weakness Psychno depression, no anxiety Physical Exam 2 Physical Exam: General-alert and oriented x3, no fever, no chills HEENT-head atraumatic and normocephalic, pupils equal and reactive to light, extraocular muscles intact Neck-no lymphadenopathy or thyromegaly, trachea midline Chest-clear to auscultation. No rales, wheezing or rhonchi Cardiac-regular rate and rhythm, normal S1 and S2 Abdomen-normal bowel sounds, no hepatosplenomegaly Extremities-no cyanosis, clubbing, or edema Neuro-cranial nerves II through XII intact, motor and sensory function within normal limits, strength symmetrical, no focal deficits Psych-normal affect, normal mood Results & Data Results & Data Vital Signs (Past 12 Hours) Vital Signs Temp Pulse Resp BP Pulse Ox O2 Del Method O2 Flow Rate 10/07/24 17:30 99 H 24 100 Nasal Cannula 2 10/07/24 17:06 87 19 100 Nasal Cannula 2 10/07/24 17:00 96 H 19 125/73 100 10/07/24 16:43 80 10/07/24 14:56 36.4 C L 95 H 20 127/73 97 Room Air Laboratory Results 10/07/24 15:04 10/07/24 15:04 Code Status & VTE Plan Code Status Full code PG Care Time/CCT Total # of Minutes Spent Total Time Spent with Patient: Total time spent is greater than 50% in coordination of care (as documented) at patient's floor/unit and/or counseling patient: Coding Level of Care Code 07480 INT INP/OBS CARE 375MIN Diagnoses Sickle cell anemia with crisis D57.00 Microcytic anemia D50.9 H/O splenectomy Z90.81
[2024-10-07] MEDS ORDERED: ONDANSETRON INJ 2 MG/ML 2 ML VIAL IV PRN (21:11)
[2024-10-07] MEDS: MoRPHine SULFATE 2 MG/ML CARP IV PRN (21:39)
[2024-10-07 21:51] LABS: BUN Creatinine Ratio 13.6 (10-20); Calcium 8.3 mg/dl (8.6-10.3); Creatinine Clr Calc Pharmacy 165.2 ml/min; Potassium 4.1 mmol/L (3.5-5.1)
[2024-10-07 21:57] LABS: Hematocrit (blood only) 29.1 % (42.0-52.0); Hemoglobin 9.7 g/dl (14.0-18.0); Mean Corpuscular Hemoglobin 24.6 pg (25.0-34.0); Mean Corpuscular Hgb Conc 33.3 g/dL (32.0-36.0); Mean Corpuscular Volume 73.9 fL (80.0-100.0); Mean Platelet Volume 11.5 fL (9.4-12.4); Platelet Count 200 K/uL (130-400); RDW Coefficient of Variation 15.5 % (11.5-14.5); Red Blood Count 3.94 M/uL (4.70-6.10); White Blood Count 21.53 K/ul (4.8-10.8)
[2024-10-07 22:20] LABS: Basophils # (auto) 0.13 K/uL (0.00-0.20); Basophils % (auto) 0.6 %; Eosinophils # (auto) 0.03 K/uL (0.00-0.50); Eosinophils % (auto) 0.1 %; Howell-Jolly Bodies 1+; Immature Granulocytes # (auto) 1.71 K/uL (0.01-0.20); Immature Granulocytes % (auto) 7.9 %; Lymphocytes # (auto) 2.45 K/uL (1.20-3.40); Lymphocytes % (auto) 11.4 %; Monocytes # (auto) 1.84 K/uL (0.11-0.59); Monocytes % (auto) 8.5 %; Neutrophils # (auto) 15.37 K/uL (1.40-6.50); Neutrophils % (auto) 71.5 %; Polychromasia 2+; Sickle Cells 1+; Target Cells 2+
[2024-10-07] MEDS ORDERED: MoRPHine SULFATE 2 MG/ML CARP IV PRN (23:12)
[2024-10-07] MEDS ORDERED: NALOXONE HCL 0.4 MG/1 ML VIAL/CARP IV PRN (23:13)
[2024-10-07] MEDS: ACETAMINOPHEN 500 MG TAB PO PRN (23:38)
[2024-10-08 07:21] LABS: Pappenheimer Bodies 1+
[2024-10-08 08:03] LABS: Basophils # (auto) 0.06 K/uL (0.00-0.20); Basophils % (auto) 0.3 %; Eosinophils # (auto) 0.02 K/uL (0.00-0.50); Eosinophils % (auto) 0.1 %; Hematocrit (blood only) 29.2 % (42.0-52.0); Hemoglobin 9.8 g/dl (14.0-18.0); Immature Granulocytes # (auto) 0.38 K/uL (0.01-0.20); Immature Granulocytes % (auto) 2.2 %; Lymphocytes # (auto) 1.02 K/uL (1.20-3.40); Lymphocytes % (auto) 5.9 %; Mean Corpuscular Hemoglobin 24.7 pg (25.0-34.0); Mean Corpuscular Hgb Conc 33.6 g/dL (32.0-36.0); Mean Corpuscular Volume 73.7 fL (80.0-100.0); Monocytes # (auto) 1.43 K/uL (0.11-0.59); Monocytes % (auto) 8.2 %; Neutrophils # (auto) 14.51 K/uL (1.40-6.50); Neutrophils % (auto) 83.3 %; Platelet Count 195 K/uL (130-400); RDW Coefficient of Variation 15.1 % (11.5-14.5); Red Blood Count 3.96 M/uL (4.70-6.10)
[2024-10-08 08:35] LABS: Nucleated RBC # (auto) 1.92 K/uL (0.00-0.12); White Blood Count 17.42 K/ul (4.8-10.8)
[2024-10-08] MEDS: KETOROLAC 30 MG/ML VIAL IV ONE (08:38)
[2024-10-08] MEDS: ASCORBIC ACID 500 MG TAB PO SCH (08:38)
[2024-10-08] MEDS: FOLIC ACID 1 MG TAB PO SCH (08:38)
[2024-10-08 08:40] LABS: Howell-Jolly Bodies 1+; Pappenheimer Bodies 1+; Polychromasia 2+; Target Cells 1+
[2024-10-08] MEDS: PENICILLIN V POTASSIUM 250 MG TAB PO SCH (10:23)
[2024-10-08] MEDS: KETOROLAC 30 MG/ML VIAL IV PRN (11:22)
--- NOTE | 2024-10-08 12:24 | Hospitalist Progress Note ---
Date of Service October 08, 2024 Assessment & Plan (1) Sickle cell anemia with crisis: Plan: Improved. Currently on IV fluids. He states that Toradol works better for him than morphine. This switch has been made. Continue oxygen per nasal cannula for now (2) Microcytic anemia: Plan: Iron level is normal. Microcytosis is probably due to underlying sickle cell anemia. Serial labs (3) H/O splenectomy: Plan: Supportive care Plan Possible discharge to home later today, October 08 Admission and Anticipated Discharge Date Admission Date: October 07, 2024 Subjective Alert and oriented. No distress. Family is at the bedside. He states that as needed Toradol works better than morphine and this switch has been made. His usual Pen-Vee K has been restarted. He could possibly go home later today, October 08 Review of Systems 2 Review of Systems: Constitutionalno fever or chills ENTno blurred vision, no double vision, no epistaxis, no sore throat Respiratoryno cough, no wheezing, no shortness of breath Cardiacno palpitations, no chest pain, no syncope Mounika nausea, vomiting, diarrhea, melena, hematochezia GUno urinary retention, no urinary incontinence, no dysuria, no hematuria Musculoskeletalno joint pain, no muscle tenderness Skinno bruising, no rashes, no pruritus Neurono isolated weakness, no paresthesia, no weakness Psychno depression, no anxiety Physical Exam 2 Physical Exam: General-alert and oriented x3, no fever, no chills HEENT-head atraumatic and normocephalic, pupils equal and reactive to light, extraocular muscles intact Neck-no lymphadenopathy or thyromegaly, trachea midline Chest-clear to auscultation. No rales, wheezing or rhonchi Cardiac-regular rate and rhythm, normal S1 and S2 Abdomen-normal bowel sounds, no hepatosplenomegaly Extremities-no cyanosis, clubbing, or edema Neuro-cranial nerves II through XII intact, motor and sensory function within normal limits, strength symmetrical, no focal deficits Psych-normal affect, normal mood Results & Data Results & Data Vital Signs (Past 12 Hours) Vital Signs Temp Pulse Resp BP Pulse Ox O2 Del Method 10/08/24 07:25 37.2 C 78 18 130/72 98 Room Air Laboratory Results 10/08/24 07:03 10/07/24 21:20 PG Care Time/CCT Total # of Minutes Spent Total Time Spent with Patient: Total time spent is greater than 50% in coordination of care (as documented) at patient's floor/unit and/or counseling patient: Coding Level of Care Code 39062 SUB INP/OBS CARE 235MIN Diagnoses Sickle cell anemia with crisis D57.00 Microcytic anemia D50.9 H/O splenectomy Z90.81
[2024-10-08] MEDS: MoRPHine SULFATE 2 MG/ML CARP IV STA (13:50)
--- NOTE | 2024-10-08 13:52 | Electrocardiogram Report ---
Test Reason : Blood Pressure : */* mmHG Vent. Rate : 81 BPM Atrial Rate : 81 BPM P-R Int : 134 ms QRS Dur : 82 ms QT Int : 376 ms P-R-T Axes : 64 67 57 degrees QTcB Int : 436 ms Normal sinus rhythm Nonspecific ST abnormality Abnormal ECG When compared with ECG of 26-Oct-2022 01:37, No significant change was found Confirmed by Antonio Garsia ([id number]) on 10/08/2024 1:52:19 PM Referred By: REFERRED SELF Confirmed By: Antonio Garsia
[2024-10-08] MEDS ORDERED: MoRPHine SULFATE 2 MG/ML CARP IV PRN (16:27)
[2024-10-08] MEDS ORDERED: oxyCODONE HCL IR 5 MG TAB (IMMEDIATE RELEASE) PO PRN (20:05)
[2024-10-08] MEDS: oxyCODONE HCL IR 5 MG TAB (IMMEDIATE RELEASE) PO PRN (20:36)
[2024-10-08] MEDS: SIMETHICONE 80 MG CHEW PO PRN (21:34)
[2024-10-09] MEDS: POLYETHYLENE (MIRALAX) 17 GM PACK PO SCH (07:41)
[2024-10-09 09:17] LABS: BUN Creatinine Ratio 13.5 (10-20); Calcium 8.7 mg/dl (8.6-10.3); Creatinine Clr Calc Pharmacy 187.5 ml/min; Potassium 3.4 mmol/L (3.5-5.1)
[2024-10-09 09:32] LABS: Hematocrit (blood only) 28.7 % (42.0-52.0); Hemoglobin 9.7 g/dl (14.0-18.0); Mean Corpuscular Hemoglobin 24.6 pg (25.0-34.0); Mean Corpuscular Hgb Conc 33.8 g/dL (32.0-36.0); Mean Corpuscular Volume 72.8 fL (80.0-100.0); Mean Platelet Volume 11.7 fL (9.4-12.4); Nucleated RBC # (auto) 2.03 K/uL (0.00-0.12); Nucleated RBC % (auto) 14.1 %; Platelet Count 163 K/uL (130-400); RDW Standard Deviation 38.4 fL (36.4-46.3); Red Blood Count 3.94 M/uL (4.70-6.10); White Blood Count 14.42 K/ul (4.8-10.8)
[2024-10-09] MEDS: POTASSIUM CHLORIDE CRTAB 20 MEQ TABCR PO STA (09:57)
[2024-10-09 10:01] LABS: Basophils # (auto) 0.02 K/uL (0.00-0.20); Basophils % (auto) 0.1 %; Eosinophils # (auto) 0.01 K/uL (0.00-0.50); Eosinophils % (auto) 0.1 %; Howell-Jolly Bodies 1+; Immature Granulocytes # (auto) 0.13 K/uL (0.01-0.20); Immature Granulocytes % (auto) 0.9 %; Lymphocytes # (auto) 0.75 K/uL (1.20-3.40); Lymphocytes % (auto) 5.2 %; Monocytes # (auto) 1.16 K/uL (0.11-0.59); Neutrophils # (auto) 12.35 K/uL (1.40-6.50); Neutrophils % (auto) 85.7 %; Pappenheimer Bodies 1+; Polychromasia 2+; Target Cells 1+
[2024-10-09 11:05] VITALS: BP 127/72; PULSE 88; RESP 16; O2SAT 96
--- NOTE | 2024-10-09 11:06 | Discharge Summary ---
Discharge Summary Date of Service October 09, 2024 Principal Dx & Hospital Course #1 = Principal Diagnosis (1) Sickle cell anemia with crisis: Resolved. Treated while hospitalized with oxygen, IV fluids, and parenteral pain medications. A short-term prescription for as needed ketorolac was sent to his local pharmacy. (2) Microcytic anemia: Iron level is normal. Microcytosis is probably due to underlying sickle cell anemia. Serial labs (3) H/O splenectomy: Supportive care Plan Home today, October 09 Admission HPI Per Admitting Provider 24-year-old black male with sickle cell anemia. He appears to have developed sickle cell crisis at this time and has been treated in the ER with IV fluids, oxygen, parenteral pain medication. He is still symptomatic and unable to be discharged to home. He is placed on observation at this time for further evaluation and treatment. No obvious source of infection. No fever. Chest x- ray is clear. Discharge Exam General-alert and oriented x3, no fever, no chills HEENT-head atraumatic and normocephalic, pupils equal and reactive to light, extraocular muscles intact Neck-no lymphadenopathy or thyromegaly, trachea midline Chest-clear to auscultation. No rales, wheezing or rhonchi Cardiac-regular rate and rhythm, normal S1 and S2 Abdomen-normal bowel sounds, no hepatosplenomegaly Extremities-no cyanosis, clubbing, or edema Neuro-cranial nerves II through XII intact, motor and sensory function within normal limits, strength symmetrical, no focal deficits Psych-normal affect, normal mood Discharge Plan Discharge Items Patient Disposition: Home - Self-Care Reason For Visit: SICKLE CELL CRISIS Discharge Diagnosis: sickle cell crisis Activity: Resume your previous activity Non-emergency contact: Primary Care Provider Call non-emergency contact if: your symptoms worsen Follow-up/Referrals: [place] [Primary Care Provider] - Diet: Regular Addtl Attending Provider Instructions: Take Toradol every 6 hours if needed for any pain. A prescription has been sent to [facility] pharmacy on [facility] Pending Studies at Discharge: No Stand-Alone Forms: My [employer], Work/School Release, Smoking Cessation Medications and DC Order Prescriptions: New ketorolac 10 mg tablet 10 mg PO Q6H PRN (Reason: pain) 5 Days Qty: 20 0RF penicillin V potassium 250 mg Tablet 250 mg PO DAILY Qty: 0 0RF Continued folic acid 1 mg tablet 1 mg PO DAILY tramadol 50 mg tablet 50 mg PO Q6H PRN (Reason: pain) Qty: 20 0RF oxycodone 5 mg capsule 5 mg PO Q6H PRN (Reason: moderate to severe pain) Qty: 14 0RF acyclovir 400 mg Tablet 400 mg PO .UD PRN (Reason: herpes simplex) Discharge Orders: Discharge Order (Routine); Ordered 10/09/24 Ordered By: Bam Raymundo Admission Data Admit Date/Time: 10/07/24 19:37 Attending Provider: Bam Raymundo Admit Provider: Bam Raymundo Primary Care Provider: [facility] Other Providers: Bam Raymundo Hospital Stay Data Consultations 10/07/24 18:03 ED Decision to Admit Stat Pending Results Patient Have Any Pending Studies at Discharge: No Discharge Instructions Given to Patient (Per Discharging Provider) Take Toradol every 6 hours if needed for any pain. A prescription has been sent to [facility] pharmacy on [facility] Total Time Total Time Spent Total Time Spent (In Minutes): 45 minutes Coding Level of Care Code 78857 INP/OBS DISCH >30 MIN Diagnoses Sickle cell anemia with crisis D57.00 Microcytic anemia D50.9 H/O splenectomy Z90.81
[2024-10-09 12:36] VITALS: TEMP 99
== END 2024-10-09 14:30 | disposition home or self-care (01) ==
LOC: ED 14:53 → 3N 14:53

== ENCOUNTER 2024-10-10 03:57 | Observation (INO) ==
--- NOTE | 2024-10-10 05:14 | Emergency Department Note ---
Impression & Plan Sickle cell pain crisis, Fever ED Provider Note ED Provider Note NAME: JANIE MCCALL III AGE:24 SEX: Male : 2000 ARRIVES VIA: Private vehicle INFORMANT: Patient ED PROVIDER(s): Sandra Nolan DO CHIEF COMPLAINT: Pain crisis HPI: This is a 24-year-old male presents emergency department due to concern for pain in his arms, legs, and low back. Patient states this is similar to prior pain that he experiences with a sickle cell crisis. Patient with recent admission for sickle cell crisis and discharged on 10/08/2024. He states he was given Tylenol and oral Toradol to take at home and had hoped that he would continue to improve. He states upon returning home despite taking the medications his pain continued to worsen. He states pain tonight is not as bad as when he was initially admitted, however worse compared to his hospitalization. He denies any coming chest pain, shortness of breath, nausea or vomiting, or abdominal pain. He denies headaches, lightheadedness, vision changes. He denies any recent nasal congestion, rhinorrhea, or sore throat. No known sick contacts. No recent change in urine or stools. Patient states he has been taking his usual medications which include pen VK and folic acid. He states he does typically know his triggers and thought perhaps it was related to the cold weather. He was surprised that during his triage she was noted to have a fever. PAST MEDICAL HISTORY:See Below PAST SURGICAL HISTORY:See Below FAMILY HISTORY:See Below SOCIAL HISTORY:See Below HOME MEDICATIONS:See Below ALLERGIES:See Below VITALS:See Below PHYSICAL EXAMINATION: GENERAL: alert, well appearing, well nourished, no distress, non-toxic EYE EXAM: normal conjunctiva, PERRL and EOM's grossly intact OROPHARYNX: no exudate, no erythema, lips, buccal mucosa, and tongue normal and mucous membranes are moist NECK: supple, no nuchal rigidity, no adenopathy, non-tender LUNGS: Clear to auscultation. Normal chest wall mechanics, no w/r/r HEART: no murmurs, S1 normal and S2 normal ABDOMEN: abdomen soft, non-tender, normo-active bowel sounds, no masses, no rebound or guarding. BACK: Back is symmetrical on inspection and there is no deformity, no midline tenderness, no CVA tenderness. SKIN: no rashes, petechiae, orbruising UPPER EXTREMITIES: upper extremities are grossly normal. FROM, nml pulses b/l. LOWER EXTREMITIES: No pitting edema. FROM, nml pulses b/l. NEURO EXAM: Normal sensorium, cranial nerves II-XII grossly intact, normal speech, no facial droop,nogross weakness of arms, no gross weakness of legs. Gross sensation intact. No ataxia. Vital Signs: reviewed and remarkable Differential Diagnosis: Pneumonia, acute chest syndrome, PE, UTI, viral syndrome, tickborne illness, bacteremia/sepsis, sinusitis, pharyngitis, deep space infection, pericarditis/myocarditis, as well as others were considered MEDICAL DECISION MAKING: This is a 24-year-old male with a history of sickle cell disease who presents due to concern for acute pain crisis. Patient recently admitted here and discharged. Patient noted to have a fever on arrival and other vital signs stable. Labs including cultures drawn and sent, IV established, EKG and chest ray performed at bedside interpreted by me and patient monitored on telemetry. Nasal swab obtained and sent for viral respiratory panel, urine collected and sent for analysis additionally. Patient's labs showed a mildly uptrending leukocytosis as his white blood cell count at discharge had been down to 14. His lactic acid and procalcitonin are reassuring. Patient had mild hypokalemia and was given oral repletion. There were no acute findings on the chest x-ray and urine did not show any evidence of infection. Patient reported improvement here following IV Tylenol, IV Toradol and oral oxycodone which she stated works the best. The viral respiratory panel is ultimately negative. Due to concern for fever and immunocompromise status, IV Rocephin was added. Case discussed with the hospitalist team for additional evaluation and management. Consultation(s): 0542: Discussed with Dr. Singh, [facility] hospitalist team, for additional evaluation and management. ER Treatment Provided: See below Diagnostics Interpreted By Me: -ECG: Normal sinus at 95, normal axis, normal intervals, nonspecific ST/T wave changes -Cardiac Monitoring: An order was placed for continuous cardiac monitoring. The monitor shows a rate of 98 with normal sinus rhythm. -Laboratory studies: As stated above and show below. -Imaging studies: X-ray Chest: A single view study of the chest was reviewed and was negative for cardiomegaly, focal infiltrate, effusion, pulmonary edema, or wide mediastinum. Triage Nursing Note Reviewed Prior/Outside Records Reviewed -discharge summary from 2 days ago reviewed Past Med/Surg History Problem List (Updated 10/10/24 @ 06:22 by Laurie Singh DO) Fever (Acute) Microcytic anemia Rhinovirus infection (Acute) Back pain (Acute) Sickle cell crisis (Acute) Mononucleosis Medical History (Updated 10/10/24 @ 06:22 by Laurie Singh DO) Leukocytosis Sickle cell disease Surgical History (Updated 10/10/24 @ 06:20 by Laurie Singh DO) H/O splenectomy Social History Smoking Status: Never smoker Tobacco Type: Cigarettes Hx Alcohol Use: Yes Alcohol type: hard liquor Hx Substance Use: No Preferred Language: Panamanian Communication Ability: Effective Scrap Collector Required: No Beliefs That Will Affect Care: None Current Living Situation: Other Current Living Situation Comment: [facility] Housing Feels Safe at Home: Yes Assistive Devices: None Allergies Allergies Allergy/AdvReac Type Severity Reaction Status Date / Time No Known Allergies Allergy Verified 10/07/24 19:58 Home Meds Home Medications Medication Instructions Recorded Confirmed folic acid 1 mg tablet 1 mg PO DAILY 10/25/22 10/07/24 acyclovir 400 mg tablet 400 mg PO .UD PRN herpes simplex 10/07/24 10/07/24 Previous Rx's Medication Instructions Recorded oxycodone 5 mg capsule 5 mg PO Q6H PRN moderate to severe 11/07/23 pain #14 caps tramadol 50 mg tablet 50 mg PO Q6H PRN pain #20 tabs 11/07/23 folic acid 1 mg tablet 1 mg PO DAILY #30 tabs 10/09/24 ketorolac 10 mg tablet 10 mg PO Q6H PRN pain 5 days #20 10/09/24 tabs penicillin V potassium 250 mg 250 mg PO DAILY #0 tabs 10/09/24 tablet penicillin V potassium 250 mg 250 mg PO DAILY #14 tabs 10/09/24 tablet Results & Data (ED) Vital Signs Vital Signs - 24 hr 10/10/24 04:11 10/10/24 04:51 10/10/24 04:55 Temperature 38.2 C H Temperature Source Temporal Artery Scan Pulse Rate 115 H 108 H Pulse Rate [Apical] 100 H Pulse Rhythm Regular Pulse Rhythm [Apical] Regular Pulse Strength Normal Pulse Strength [Apical] Normal Respiratory Rate 19 18 Respiratory Effort / Characteristics Non-Labored Spontaneous Non-Labored Respiratory Depth Normal Normal Respiratory Pattern Regular Regular Blood Pressure 125/65 Blood Pressure [Left Arm] 130/87 Blood Pressure Mean 85 Blood Pressure Mean [Left Arm] 101 Blood Pressure Position Sitting Blood Pressure Position [Left Arm] Lying Pulse Oximetry 97 98 Oxygen Delivery Method Room Air Room Air Sepsis Recent Fever Within 48 Hours Yes Sepsis New/Unexplained Change in Mental Status N/A Sepsis Action Taken by Nursing No Action Required 10/10/24 06:00 10/10/24 06:59 Temperature 37.6 C H Temperature Source Oral Pulse Rate Pulse Rate [Apical] 101 H Pulse Rhythm Pulse Rhythm [Apical] Regular Pulse Strength Pulse Strength [Apical] Normal Respiratory Rate 17 Respiratory Effort / Characteristics Non-Labored Respiratory Depth Normal Respiratory Pattern Regular Blood Pressure Blood Pressure [Left Arm] 126/74 Blood Pressure Mean Blood Pressure Mean [Left Arm] 91 Blood Pressure Position Blood Pressure Position [Left Arm] Sitting Pulse Oximetry 97 Oxygen Delivery Method Room Air Sepsis Recent Fever Within 48 Hours Sepsis New/Unexplained Change in Mental Status Sepsis Action Taken by Nursing Laboratory Data 10/10/24 05:35 10/10/24 05:35 Lab Results 10/10/24 10/10/24 Range/Units 05:35 05:54 WBC 15.18 H (4.8-10.8) K/ul RBC 3.87 L (4.70-6.10) M/uL Hgb 9.4 L (14.0-18.0) g/dl Hct 28.1 L (42.0-52.0) % MCV 72.6 L (80.0-100.0) fL MCH 24.3 L (25.0-34.0) pg MCHC 33.5 (32.0-36.0) g/dL RDW Std Deviation 37.2 (36.4-46.3) fL RDW Coeff of Anant 14.4 (11.5-14.5) % Plt Count 174 (130-400) K/uL MPV 11.5 (9.4-12.4) fL Immature Gran % (Auto) 0.7 % Neut % (Auto) 84.7 % Lymph % (Auto) 5.0 % Finney % (Auto) 9.1 % Eos % (Auto) 0.4 % Baso % (Auto) 0.1 % Reticulocyte % (Auto) 6.52 H (0.50-2.00) % Neut # (Auto) 12.87 H (1.40-6.50) K/uL Lymph # (Auto) 0.76 L (1.20-3.40) K/uL Finney # (Auto) 1.38 H (0.11-0.59) K/uL Eos # (Auto) 0.06 (0.00-0.50) K/uL Baso # (Auto) 0.01 (0.00-0.20) K/uL Reticulocyte # 0.250 H (0.020-0.100) 10^6/uL Immature Gran # (Auto) 0.10 (0.01-0.20) K/uL Absolute Nucleated RBC 0.50 H (0.00-0.12) K/uL Nucleated RBC % (auto) 3.3 % Polychromasia 1+ Hypochromasia Present Pappenheimer Bodies 1+ Target Cells 3+ PT 11.4 (9.0-12.0) Seconds INR 1.1 (0.9-1.1) Sodium 136 (136-145) mmol/L Potassium 3.3 L (3.5-5.1) mmol/L Chloride 102 (98-107) mmol/L Carbon Dioxide 27 (21-32) mmol/L Anion Gap 7 (3-11) BUN 7 (6-23) mg/dl Creatinine 0.50 L (0.6-1.4) mg/dl Est Cr Clr Drug Dosing 194.7 ml/min eGFR 147.90 BUN/Creatinine Ratio 14.0 (10-20) Glucose 115 H (70-99(Fasting)) mg/dl Calcium 8.8 (8.6-10.3) mg/dl Magnesium 1.9 (1.7-2.4) mg/dl Total Bilirubin 1.6 H (0.2-1.0) mg/dl AST 27 (13-39) U/L ALT 20 (7-52) U/L Alkaline Phosphatase 151 H (34-104) U/L Troponin I High Sens 3.9 (0-20) pg/ml Total Protein 6.8 (6.0-8.3) gm/dl Albumin 4.0 (3.4-5.0) gm/dl Globulin 2.8 (2.5-4.0) gm/dl Albumin/Globulin Ratio 1.4 (0.9-2) Lipase 46 (11-82) U/L Procalcitonin 0.42 (0-0.5) ng/ml TSH 0.783 (0.300-4.500) uIu/ml Urine Color Yellow Urine Appearance Clear (Clear) Urine pH 6.0 (4.5-7.5) Ur Specific [place] 1.015 (1.000-1.030) Urine Protein 1+ H (Negative) Urine Glucose (UA) Negative (Negative) Urine Ketones Negative (Negative) Urine Blood Negative (Negative) Urine Nitrite Negative (Negative) Urine Bilirubin Negative (Negative) Urine Urobilinogen Negative (Negative) Ur Leukocyte Esterase Negative (Negative) Urine WBC (Auto) 0-5 (0-5) /hpf Urine RBC (Auto) 0-2 (0-2) /hpf U Hyaline Cast (Auto) 0-2 (0-2) /lpf U Epithel Cells (Auto) 0-2 (0-2) /hpf Urine Bacteria (Auto) None Seen (None Seen) Adenovirus (PCR) Not Detected (NotDetected) B. pertussis DNA (PCR) Not Detected (NotDetected) B.parapertussis DNA PCR Not Detected (NotDetected) C. pneumoniae DNA (PCR) Not Detected (NotDetected) Coronavirus OC43 (PCR) Not Detected (NotDetected) Coronavirus HKU1 (PCR) Not Detected (NotDetected) Coronavirus 229E (PCR) Not Detected (NotDetected) SARS-CoV-2 (PCR) Not Detected (NotDetected) Coronavirus NL63 (PCR) Not Detected (NotDetected) Monoscreen Negative (Negative) Human Metapneumovir PCR Not Detected (NotDetected) Influenza Type A (PCR) Not Detected (NotDetected) Influenza Type B (PCR) Not Detected (NotDetected) M. pneumoniae (PCR) Not Detected (NotDetected) Parainfluenza 1 (PCR) Not Detected (NotDetected) Parainfluenza 2 (PCR) Not Detected (NotDetected) Parainfluenza 3 (PCR) Not Detected (NotDetected) Parainfluenza 4 (PCR) Not Detected (NotDetected) RSV (PCR) Not Detected (NotDetected) Entero/Rhino (PCR) Not Detected (NotDetected) Administered Medications Discontinued Medications Sodium Chloride (Nss) 1,000 mls @ 999 mls/hr IV .Q1H1M ONE Stop: 10/10/24 06:20 Last Infusion: 10/10/24 06:47 Dose: Infused Documented By: Admin: 10/10/24 05:46 Dose: 999 mls/hr Documented By: PILLO Acetaminophen (Ofirmev) 1,000 mg in 100 mls @ 400 mls/hr IV NOW STA Stop: 10/10/24 05:41 Last Infusion: 10/10/24 06:05 Dose: Infused Documented By: Admin: 10/10/24 05:45 Dose: 400 mls/hr Documented By: PILLO Ketorolac Tromethamine (Ketorolac Tromethamine 15 Mg/Ml Vial) 10 mg IV NOW ONE Stop: 10/10/24 05:21 Last Admin: 10/10/24 05:45 Dose: 10 mg Documented By: PILLO Oxycodone HCl (Oxycodone Hcl Ir 5 Mg Tab (Immediate Release)) 5 mg PO NOW STA Stop: 10/10/24 05:28 Last Admin: 10/10/24 05:46 Dose: 5 mg Documented By: PILLO Potassium Chloride (Potassium Chloride Crtab 20 Meq Tabcr) 40 meq PO NOW STA Stop: 10/10/24 06:27 Last Admin: 10/10/24 06:34 Dose: Not Given Documented By: PILLO Discharge Plan Visit Data Chief Complaint: Arm Pain Stated Complaint: PAIN IN ARMS AND INTO BACK ED Provider: Sandra Nolan Discharge Problem: Sickle cell pain crisis, Fever Forms Stand Alone Forms: My [facility] Prescriptions Prescriptions: No Action folic acid 1 mg tablet 1 mg PO DAILY tramadol 50 mg tablet 50 mg PO Q6H PRN (Reason: pain) Qty: 20 0RF oxycodone 5 mg capsule 5 mg PO Q6H PRN (Reason: moderate to severe pain) Qty: 14 0RF acyclovir 400 mg Tablet 400 mg PO .UD PRN (Reason: herpes simplex) penicillin V potassium 250 mg Tablet 250 mg PO DAILY Qty: 0 0RF ketorolac 10 mg tablet 10 mg PO Q6H PRN (Reason: pain) 5 Days Qty: 20 0RF folic acid 1 mg Tablet 1 mg PO DAILY Qty: 30 0RF penicillin V potassium 250 mg tablet 250 mg PO DAILY Qty: 14 0RF Referrals [facility] [Non-Staff] -
[2024-10-10] MEDS: ACETAMINOPHEN 1,000 MG/100 ML VIAL IV STA (05:45)
[2024-10-10] MEDS: KETOROLAC TROMETHAMINE 15 MG/ML VIAL IV ONE (05:45)
[2024-10-10] MEDS: oxyCODONE HCL IR 5 MG TAB (IMMEDIATE RELEASE) PO STA (05:46)
[2024-10-10] MEDS: SODIUM CHLORIDE 0.9% 1,000 ML IV ONE (05:46)
--- NOTE | 2024-10-10 06:04 | History & Physical Report ---
Date of Service October 10, 2024 Assessment & Plan (1) Sickle cell crisis: Plan: Patient with pain consistent with sickle cell pain crisis. -Admit to medical -Supplemental O2 -Hydration with 1/2 NSS at 80mL/hr x 2L ordered -Tylenol 650mg po q 4 hours PRN -Toradol 15mg IV q 6 hours PRN -Oxycodone 5mg po q 4 hours PRN -Narcan available in the event of accidental overdose -Colace/Miralax available for constipation -Continue Folic Acid 1mg po daily -Continue prophylactic PCN-VK 250mg po daily -Patient reports that PO Oxycodone and Toradol with Tylenol tend to work best to manage his pain - instructed him to notify the nurse if his pain is not controlled with this regimen (2) Fever: Plan: Patient with fever at 38 as well as sinus tachycardia on arrival. He has chronic leukocytosis and today's value of 15.18 is near baseline. Undetermined fever source at this time. Patient denies chest pain, cough, SOB, abdominal pain, urinary or other focal complaints. Patient is asplenic. Is on prophylactic PCN-VK. CXR has been obtained - formal read is pending as are results to respiratory biofire panel and procalcitonin. -Follow cultures and workup sent from the ER -If no virus apparent on Biofire would start empiric Ceftriaxone 1gm IV daily History of Present Illness Chief Complaint: sickle cell pain crisis, fever Primary Care Provider: NO PCP Donnell Pacheco is a 24yo male with history of sickle cell anemia presenting with pain and fever. Patient was recently admitted to [facility] from 10/07 - 10/09/24 for sickle cell pain crisis. He was treated with supplemental O2, hydration and pain medication. He reports that he was just starting to feel improved on his day of discharge. Since he has been home he has had worsening of his pain. Pain involves his upper thighs bilaterally as well as his arms and his lower back. It is similar to his sickle cell pain but is more severe than a typical crisis. He does have a fever on arrival at 38 but denies fevers at home. No headache, chest pain, cough, congestion, abdominal pain, nausea, vomiting, diarrhea, rash or urinary complaints. He has not had any sick contacts to his knowledge. No additional complaints at this time. In the ER he is febrile (38 remeasured in room), mildly tachycardic with HR of 100. He reports that PO Oxycodone, Tylenol and Toradol work best to manage his pain. He also reports that he has infrequent pain crises and he typically improves fairly rapidly. Family is at bedside and provides history as well. ER Course: Oxycodone 5mg NSS 1L Tylenol 1gm Toradol 10mg Allergies Allergy/AdvReac Type Severity Reaction Status Date / Time No Known Allergies Allergy Verified 10/07/24 19:58 Home Medications Medication Instructions Recorded Confirmed Type folic acid 1 mg tablet 1 mg PO DAILY 10/25/22 10/07/24 History oxycodone 5 mg capsule 5 mg PO Q6H PRN moderate to severe 11/07/23 10/07/24 Rx pain #14 caps tramadol 50 mg tablet 50 mg PO Q6H PRN pain #20 tabs 11/07/23 10/07/24 Rx acyclovir 400 mg tablet 400 mg PO .UD PRN herpes simplex 10/07/24 10/07/24 History folic acid 1 mg tablet 1 mg PO DAILY #30 tabs 10/09/24 Rx ketorolac 10 mg tablet 10 mg PO Q6H PRN pain 5 days #20 10/09/24 Rx tabs penicillin V potassium 250 mg 250 mg PO DAILY #0 tabs 10/09/24 Rx tablet penicillin V potassium 250 mg 250 mg PO DAILY #14 tabs 10/09/24 Rx tablet Past Med/Surg History Problem List (Updated 10/10/24 @ 06:22 by Laurie Singh DO) Fever (Acute) Microcytic anemia Rhinovirus infection (Acute) Back pain (Acute) Sickle cell crisis (Acute) Mononucleosis Medical History (Updated 10/10/24 @ 06:22 by Laurie Singh DO) Leukocytosis Sickle cell disease Surgical History (Updated 10/10/24 @ 06:20 by Laurie Singh DO) H/O splenectomy Social History Smoking Status: Never smoker Tobacco Type: Cigarettes Hx Alcohol Use: Yes Alcohol type: hard liquor Hx Substance Use: No Preferred Language: Cypriot Communication Ability: Effective Construction Person Required: No Beliefs That Will Affect Care: None Current Living Situation: Other Current Living Situation Comment: [employer] Housing Feels Safe at Home: Yes Assistive Devices: None Review of Systems Review of Systems: All systems reviewed & are unremarkable except as noted in HPI & below Physical Exam Physical Exam: General: patient in significant discomfort - Oxycodone 5mg being administered presently, NAD, AA&O x 4 Skin: warm, dry, intact, no rashes or lesions HEENT: NC/AT, PERRL, EOMI, anicteric sclera, conjunctiva without injection, external ear normal to inspection and nontender, nares patent, moist mucus membranes, dentition intact, no oropharyngeal lesions, neck supple, trachea midline, no LAD, no thyromegaly, no JVD Heart: +S1/S2, regular, tachycardic, no m/r/g Lungs: equal air entry bilaterally, no rales/rhonchi/wheezes Abd: +BS, soft, NT/ND, no masses/organomegaly/ascites, no CVA tenderness Ext: warm, 2+ pulses in UE/LE bilaterally, no clubbing/cyanosis or edema Neuro: nonfocal, patient AA&O x 4, speech intact, no facial droop, moving all extremities on command with equal strength 5/5 Results & Data Results & Data Vital Signs (Past 12 Hours) Vital Signs Temp Pulse Pulse Resp BP BP Pulse Ox 10/10/24 04:55 100 H 18 130/87 98 10/10/24 04:51 108 H 10/10/24 04:11 38.2 C H 115 H 19 125/65 97 O2 Del Method 10/10/24 04:55 Room Air 10/10/24 04:51 10/10/24 04:11 Room Air Laboratory Results Laboratory Results WBC 15.18 K/ul (4.8-10.8) H 10/10/24 05:35 RBC 3.87 M/uL (4.70-6.10) L 10/10/24 05:35 Hgb 9.4 g/dl (14.0-18.0) L 10/10/24 05:35 Hct 28.1 % (42.0-52.0) L 10/10/24 05:35 MCV 72.6 fL (80.0-100.0) L 10/10/24 05:35 MCH 24.3 pg (25.0-34.0) L 10/10/24 05:35 MCHC 33.5 g/dL (32.0-36.0) 10/10/24 05:35 RDW Std Deviation 37.2 fL (36.4-46.3) 10/10/24 05:35 RDW Coeff of Anant 14.4 % (11.5-14.5) 10/10/24 05:35 Plt Count 174 K/uL (130-400) 10/10/24 05:35 MPV 11.5 fL (9.4-12.4) 10/10/24 05:35 Immature Gran % (Auto) 0.7 % 10/10/24 05:35 Neut % (Auto) 84.7 % 10/10/24 05:35 Lymph % (Auto) 5.0 % 10/10/24 05:35 Burke % (Auto) 9.1 % 10/10/24 05:35 Eos % (Auto) 0.4 % 10/10/24 05:35 Baso % (Auto) 0.1 % 10/10/24 05:35 Neut # (Auto) 12.87 K/uL (1.40-6.50) H 10/10/24 05:35 Lymph # (Auto) 0.76 K/uL (1.20-3.40) L 10/10/24 05:35 Burke # (Auto) 1.38 K/uL (0.11-0.59) H 10/10/24 05:35 Eos # (Auto) 0.06 K/uL (0.00-0.50) 10/10/24 05:35 Baso # (Auto) 0.01 K/uL (0.00-0.20) 10/10/24 05:35 Immature Gran # (Auto) 0.10 K/uL (0.01-0.20) 10/10/24 05:35 Absolute Nucleated RBC 0.50 K/uL (0.00-0.12) H 10/10/24 05:35 Nucleated RBC % (auto) 3.3 % 10/10/24 05:35 Urine Color Yellow 10/10/24 05:54 Urine Appearance Clear (Clear) 10/10/24 05:54 Urine pH 6.0 (4.5-7.5) 10/10/24 05:54 Ur Specific [place] 1.015 (1.000-1.030) 10/10/24 05:54 Urine Protein 1+ (Negative) H 10/10/24 05:54 Urine Glucose (UA) Negative (Negative) 10/10/24 05:54 Urine Ketones Negative (Negative) 10/10/24 05:54 Urine Blood Negative (Negative) 10/10/24 05:54 Urine Nitrite Negative (Negative) 10/10/24 05:54 Urine Bilirubin Negative (Negative) 10/10/24 05:54 Urine Urobilinogen Negative (Negative) 10/10/24 05:54 Ur Leukocyte Esterase Negative (Negative) 10/10/24 05:54 Urine WBC (Auto) 0-5 /hpf (0-5) 10/10/24 05:54 Urine RBC (Auto) 0-2 /hpf (0-2) 10/10/24 05:54 U Hyaline Cast (Auto) 0-2 /lpf (0-2) 10/10/24 05:54 U Epithel Cells (Auto) 0-2 /hpf (0-2) 10/10/24 05:54 Urine Bacteria (Auto) None Seen (None Seen) 10/10/24 05:54 Diagnostic Findings CXR obtained - read is pending Respiratory biofire panel obtained - results pending TSH, Procalcitonin and Troponin pending ECG Additional Comments: EKG per my interpretation with NSR at 95bpm, normal axis, BI=479, QRS=82, LOz=799, some lateral T-wave flattening otherwise no acute ischemic changes PG Care Time/CCT Total # of Minutes Spent Total Time Spent with Patient: Total time spent is greater than 50% in coordination of care (as documented) at patient's floor/unit and/or counseling patient: Coding Level of Care Code 74415 INT INP/OBS CARE 3/75MIN Diagnoses Sickle cell crisis D57.00 Fever R50.9
[2024-10-10 06:07] LABS: Basophils # (auto) 0.01 K/uL (0.00-0.20); Basophils % (auto) 0.1 %; Eosinophils # (auto) 0.06 K/uL (0.00-0.50); Eosinophils % (auto) 0.4 %; Hematocrit (blood only) 28.1 % (42.0-52.0); Hemoglobin 9.4 g/dl (14.0-18.0); Immature Granulocytes % (auto) 0.7 %; Lymphocytes # (auto) 0.76 K/uL (1.20-3.40); Mean Corpuscular Hemoglobin 24.3 pg (25.0-34.0); Mean Corpuscular Hgb Conc 33.5 g/dL (32.0-36.0); Mean Corpuscular Volume 72.6 fL (80.0-100.0); Mean Platelet Volume 11.5 fL (9.4-12.4); Monocytes # (auto) 1.38 K/uL (0.11-0.59); Monocytes % (auto) 9.1 %; Neutrophils # (auto) 12.87 K/uL (1.40-6.50); Neutrophils % (auto) 84.7 %; Nucleated RBC % (auto) 3.3 %; Platelet Count 174 K/uL (130-400); RDW Coefficient of Variation 14.4 % (11.5-14.5); RDW Standard Deviation 37.2 fL (36.4-46.3); Red Blood Count 3.87 M/uL (4.70-6.10); White Blood Count 15.18 K/ul (4.8-10.8)
[2024-10-10 06:09] LABS: Appearance Urine Clear (Clear); Bacteria Urine Automated None Seen (None Seen); Bilirubin Urine Negative (Negative); Blood Urine Negative (Negative); Cast Urine Automated 0-2 /lpf (0-2); Color Urine Yellow; Epithelial Cell Urine Auto 0-2 /hpf (0-2); Glucose Urine UA Negative (Negative); Ketones Urine Negative (Negative); Leukocyte Esterase Urine Negative (Negative); Nitrite Urine Negative (Negative); Protein Urine 1+ (Negative); RBC Urine Automated 0-2 /hpf (0-2); Specific Gravity Urine 1.015 (1.000-1.030); Urobilinogen Urine Negative (Negative); WBC Urine Automated 0-5 /hpf (0-5)
[2024-10-10 06:22] LABS: Albumin Globulin Ratio 1.4 (0.9-2); Bilirubin,Total 1.6 mg/dl (0.2-1.0); Calcium 8.8 mg/dl (8.6-10.3); Creatinine Clr Calc Pharmacy 194.7 ml/min; Globulin 2.8 gm/dl (2.5-4.0); Magnesium 1.9 mg/dl (1.7-2.4); Potassium 3.3 mmol/L (3.5-5.1); Total Protein 6.8 gm/dl (6.0-8.3)
[2024-10-10 06:28] LABS: Troponin I High Sensitivity 3.9 pg/ml (0-20)
[2024-10-10 06:33] LABS: INR 1.1 (0.9-1.1); Prothrombin Time 11.4 Seconds (9.0-12.0)
[2024-10-10] MEDS: POTASSIUM CHLORIDE CRTAB 20 MEQ TABCR PO STA ×2 (06:34→07:37)
[2024-10-10 06:38] LABS: Thyroid Stimulating Hormone 0.783 uIu/ml (0.300-4.500)
[2024-10-10 06:48] LABS: Reticulocyte % 6.52 % (0.50-2.00)
[2024-10-10 06:51] LABS: Hypochromasia Present; Pappenheimer Bodies 1+; Polychromasia 1+; Target Cells 3+
[2024-10-10 06:53] LABS: Adenovirus PCR Not Detected (NotDetected); Bordetella parapertussis PCR Not Detected (NotDetected); Bordetella pertussis PCR Not Detected (NotDetected); Chlamydia pneumoniae PCR Not Detected (NotDetected); Coronavirus 229E PCR Not Detected (NotDetected); Coronavirus CoV-2 (COVID19)PCR Not Detected (NotDetected); Coronavirus HKU1 PCR Not Detected (NotDetected); Coronavirus NL63 PCR Not Detected (NotDetected); Coronavirus OC43PCR Not Detected (NotDetected); Human Metapneumovirus PCR Not Detected (NotDetected); Influenza A PCR Not Detected (NotDetected); Influenza B PCR Not Detected (NotDetected); Mycoplasma pneumoniae PCR Not Detected (NotDetected); Parainfluenza Virus 1 PCR Not Detected (NotDetected); Parainfluenza Virus 2 PCR Not Detected (NotDetected); Parainfluenza Virus 3 PCR Not Detected (NotDetected); Parainfluenza Virus 4 PCR Not Detected (NotDetected); Respiratory Syncytial VirusPCR Not Detected (NotDetected); Rhinovirus/Enterovirus PCR Not Detected (NotDetected)
--- NOTE | 2024-10-10 07:17 | XRay Report ---
EXAM: XR chest 1V portable CLINICAL HISTORY: FEVER [facility] TECHNIQUE: An X-ray image of the chest is obtained in 1 AP projection. COMPARISON: Prior study dated 10/07/2024. FINDINGS: Pulmonary Parenchyma: Prominent both porsha and bronchovascular markings likely congestion/bronchitis. No evidence of consolidation, collapse, or focal opacities. No pulmonary nodules are identified. No evidence of pleural effusion or pleural thickening. Heart and Mediastinum: Heart size and shape are normal. No mediastinal widening or masses. No hilar or mediastinal lymphadenopathy. Bony Thorax: Bony thorax appears intact without fractures or deformities. Soft Tissues: Soft tissues overlying the chest wall are unremarkable. IMPRESSION: 1. Stable prominent both porsha and bronchovascular markings, likely congestion/bronchitis. 2. No acute cardiopulmonary abnormalities are identified. Electronically signed by Azalea Sosa 10-10-2024 07:16 AM
[2024-10-10] MEDS: cefTRIAXone SODIUM 2,000 MG/50 ML BAG IV STA (07:37)
[2024-10-10] MEDS ORDERED: POLYETHYLENE (MIRALAX) 17 GM PACK PO PRN (08:38)
[2024-10-10] MEDS ORDERED: DOCUSATE SODIUM 100 MG CAP PO PRN (08:38)
[2024-10-10] MEDS ORDERED: VANCOMYCIN HCL 1,000 MG/270 ML BAG IV SCH (08:38)
[2024-10-10] MEDS ORDERED: ONDANSETRON INJ 2 MG/ML 2 ML VIAL IV PRN (08:38)
[2024-10-10] MEDS ORDERED: NALOXONE HCL 0.4 MG/1 ML VIAL/CARP IV PRN (08:38)
[2024-10-10] MEDS ORDERED: VANCOMYCIN CONSULT ACTIVE PRN (08:38)
[2024-10-10] MEDS: SODIUM CHLORIDE 0.45 % 1,000 ML IV SCH (09:26)
[2024-10-10] MEDS: VANCOMYCIN HCL 1,500 MG in SODIUM CHLORIDE 0.9% 500 ML IV ONE (10:32)
[2024-10-10] MEDS: FOLIC ACID 1 MG TAB PO SCH (10:45)
--- NOTE | 2024-10-10 10:50 | Pharmacy Report ---
Pharmacy PK ABX Note - Date of Service October 10, 2024 - Assessment and Plan Assessment 24 year old M receiving vancomycin and ceftriaxone empirically in setting of fever. Pt immunocompromised (sickle cell, asplenic). Blood cultures pending. Day #1 of antimicrobial therapy. Plan Vancomycin * Loading dose: 1500 mg IV x 1 * Maintenance dose: 1250 mg IV every 8 hours * Regimen is predicted to achieve target AUC/VICKEY of 400-600 mg/L.hr * Trough level tomorrow AM Pharmacy will continue to follow and will adjust dose/frequency as necessary. Thank you. Pharmacy has transitioned to AUC monitoring for vancomycin. AUC/VICKEY is the preferred PK/PD target and is associated with decreased risk of nephrotoxicity compared to traditional trough targets.
[2024-10-10] MEDS: KETOROLAC TROMETHAMINE 15 MG/ML VIAL IV PRN (11:35)
--- NOTE | 2024-10-10 13:46 | Electrocardiogram Report ---
Test Reason : Blood Pressure : */* mmHG Vent. Rate : 95 BPM Atrial Rate : 95 BPM P-R Int : 140 ms QRS Dur : 82 ms QT Int : 332 ms P-R-T Axes : 59 56 55 degrees QTcB Int : 417 ms Normal sinus rhythm Nonspecific T wave abnormality Abnormal ECG When compared with ECG of 07-Oct-2024 15:01, Nonspecific T wave abnormality now evident in Lateral leads Confirmed by Antonio Garsia ([id number]) on 10/10/2024 1:46:28 PM Referred By: REFERRED SELF Confirmed By: Antonio Garsia
[2024-10-10] MEDS ORDERED: MoRPHine SULFATE 4 MG/ML 1 ML CARP\\VIAL IV PRN (14:29)
[2024-10-10] MEDS: oxyCODONE HCL IR 5 MG TAB (IMMEDIATE RELEASE) PO PRN (15:37)
[2024-10-10] MEDS ORDERED: VANCOMYCIN HCL 1,250 MG in SODIUM CHLORIDE 0.9% 250 ML IV SCH (17:00)
--- NOTE | 2024-10-10 19:10 | Communication Note ---
Date of Service: October 10, 2024 Follow up note, admitted this AM Denies dyspnea, cough, chest pain. No abd pain or N/V/D. Thigh, arms, low back pain persists but improved Physical exam normal Sickle cell anemia with pain crisis. No chest pain or hypoxia -continue IV fluids, PRN toradol, morphine, oxycodone -improved overnight Low grade fever in asplenic patient, tachycardia. 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 CXR with bronchitis markings but no symptoms of cough, sputum. Blood cultures pending -continue ceftriaxone -MRSA nares -he and his mother wish to stop vancomycin since he gets frequent antibiotics and prefer to avoid resistance. No hx MRSA infection though recently ho spitalized -continue ceftriaxone -if cough add azithromycin or doxy to cover mycoplasma, pertussis Updated his mother at bedside
[2024-10-10] MEDS: PENICILLIN V POTASSIUM 250 MG TAB PO SCH (19:29)
[2024-10-11] MEDS: cefTRIAXone SODIUM 1,000 MG/50 ML BAG IV SCH (06:24)
[2024-10-11 06:37] LABS: Hematocrit (blood only) 25.3 % (42.0-52.0); Hemoglobin 8.6 g/dl (14.0-18.0); Mean Corpuscular Hemoglobin 24.6 pg (25.0-34.0); Mean Corpuscular Volume 72.3 fL (80.0-100.0); Mean Platelet Volume 11.3 fL (9.4-12.4); Nucleated RBC # (auto) 0.13 K/uL (0.00-0.12); Platelet Count 197 K/uL (130-400); RDW Coefficient of Variation 13.6 % (11.5-14.5); RDW Standard Deviation 34.6 fL (36.4-46.3); White Blood Count 13.39 K/ul (4.8-10.8)
[2024-10-11 06:49] LABS: BUN Creatinine Ratio 15.4 (10-20); Calcium 8.4 mg/dl (8.6-10.3); Potassium 3.6 mmol/L (3.5-5.1)
[2024-10-11] MEDS ORDERED: VANCOMYCIN LEVEL ONE (08:00)
[2024-10-11] MEDS: ACETAMINOPHEN 325 MG TAB PO PRN (15:39)
[2024-10-11] MEDS: SODIUM CHLORIDE 0.9% 1,000 ML IV SCH (17:05)
--- NOTE | 2024-10-11 17:59 | Hospitalist Progress Note ---
Date of Service October 11, 2024 Assessment & Plan (1) Sickle cell crisis: Plan: 24 y/o with sickle cell pain crisis. No chest pain or hypoxia. Consistent low grade fevers and some chills/sweats, possible bronchitis on CXR but no cough/wheeze/dyspnea, mild stuffy nose. Respiratory biofire and serial procalcitonin were negative. 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 continue folic acid -anemia is near baseline of 9s, mild dilutional drop to 8.6 overnight -AM CBC Probably home tomorrow if blood culture negative at 48h Updated mother at bedside (2) Fever: Admission and Anticipated Discharge Date Admission Date: October 10, 2024 Subjective Donnell is feeling better - pain crisis improved - low back, thighs much better, arms still a bit sore, using small amount of oxycodone and toradol no IVs He is having some cold sweats especially overnight. Still no cough or any clear focal symptoms - no chest/abd pain, no dyspnea, no URI sx except mildly stuffy nose ongoing for awhile, no N/V/D had normal BM today Physical Exam 2 Physical Exam: PHYSICAL EXAMINATION Last 24h vital signs reviewed, see documentation in flowsheet General: comfortable appearing, no distress HEENT: Normocephalic, atraumatic, pupils round and equal, sclerae anicteric, no conjunctival injection, moist mucus membranes. mild stuffy nose without drainage Lungs: Normal respiratory effort. Clear to auscultation bilaterally. No RRW Heart: Regular rate and rhythm, no murmurs. No JVD Abdomen: Soft, nontender, nondistended. Bowel sounds present. Extremities: Warm, dry, well-perfused. No extremity edema. Neuro: Alert and oriented x 4, face symmetric, moves 4 extremities well Psych: Normal affect and behavior Results & Data Results & Data Vital Signs (Past 12 Hours) Vital Signs Temp Pulse Resp BP Pulse Ox O2 Del Method 10/11/24 15:30 98.8 F 90 16 136/75 97 Room Air 10/11/24 14:33 99.1 F 99 H 17 136/76 97 Room Air 10/11/24 07:49 99.9 F H 93 H 17 133/74 97 Room Air Laboratory Results 10/11/24 05:47 10/11/24 05:47 PG Care Time/CCT Total # of Minutes Spent Total Time Spent with Patient: Total time spent is greater than 50% in coordination of care (as documented) at patient's floor/unit and/or counseling patient: Coding Level of Care Code 66291 SUB INP/OBS CARE 2/35MIN Diagnoses Sickle cell crisis D57.00 Fever R50.9
[2024-10-12 09:21] LABS: Basophils # (auto) 0.01 K/uL (0.00-0.20); Basophils % (auto) 0.1 %; Eosinophils # (auto) 0.23 K/uL (0.00-0.50); Eosinophils % (auto) 1.8 %; Hematocrit (blood only) 23.4 % (42.0-52.0); Immature Granulocytes # (auto) 0.07 K/uL (0.01-0.20); Immature Granulocytes % (auto) 0.6 %; Lymphocytes # (auto) 1.45 K/uL (1.20-3.40); Lymphocytes % (auto) 11.5 %; Mean Corpuscular Hemoglobin 24.4 pg (25.0-34.0); Mean Corpuscular Hgb Conc 34.2 g/dL (32.0-36.0); Mean Corpuscular Volume 71.3 fL (80.0-100.0); Mean Platelet Volume 10.2 fL (9.4-12.4); Monocytes # (auto) 1.48 K/uL (0.11-0.59); Monocytes % (auto) 11.7 %; Neutrophils # (auto) 9.42 K/uL (1.40-6.50); Neutrophils % (auto) 74.3 %; Nucleated RBC # (auto) 0.18 K/uL (0.00-0.12); Nucleated RBC % (auto) 1.4 %; Platelet Count 215 K/uL (130-400); RDW Coefficient of Variation 13.8 % (11.5-14.5); RDW Standard Deviation 34.8 fL (36.4-46.3); Red Blood Count 3.28 M/uL (4.70-6.10); White Blood Count 12.66 K/ul (4.8-10.8)
[2024-10-12 09:35] LABS: Albumin Globulin Ratio 1.2 (0.9-2); Albumin Level 3.5 gm/dl (3.4-5.0); Bilirubin,Total 1.5 mg/dl (0.2-1.0); Calcium 8.3 mg/dl (8.6-10.3); Creatinine Clr Calc Pharmacy 197.7 ml/min; Potassium 3.6 mmol/L (3.5-5.1); Total Protein 6.5 gm/dl (6.0-8.3)
--- NOTE | 2024-10-12 09:35 | XRay Report ---
XR chest 2V PA/lateral CLINICAL HISTORY: persistent fever, sickle cell anemia COMPARISON STUDY: 10/10/2024 FINDINGS: Heart size and pulmonary vasculature are normal. No effusion, consolidation, or pneumothora x. IMPRESSION: No pneumonia seen. ACT 112: Negative or not required by law. Electronically signed by: Osmin Kohli M.D. 10/12/2024 9:34 AM
[2024-10-12 10:13] LABS: Procalcitonin 0.18 ng/ml (0-0.5)
[2024-10-12 10:16] LABS: Howell-Jolly Bodies 1+; Microcytosis Present; Pappenheimer Bodies 1+; Polychromasia 2+; Target Cells 2+
[2024-10-12 10:31] LABS: Adenovirus PCR Not Detected (NotDetected); Bordetella parapertussis PCR Not Detected (NotDetected); Bordetella pertussis PCR Not Detected (NotDetected); Chlamydia pneumoniae PCR Not Detected (NotDetected); Coronavirus 229E PCR Not Detected (NotDetected); Coronavirus CoV-2 (COVID19)PCR Not Detected (NotDetected); Coronavirus HKU1 PCR Not Detected (NotDetected); Coronavirus NL63 PCR Not Detected (NotDetected); Coronavirus OC43PCR Not Detected (NotDetected); Human Metapneumovirus PCR Not Detected (NotDetected); Influenza A PCR Not Detected (NotDetected); Influenza B PCR Not Detected (NotDetected); Mycoplasma pneumoniae PCR Not Detected (NotDetected); Parainfluenza Virus 1 PCR Not Detected (NotDetected); Parainfluenza Virus 2 PCR Not Detected (NotDetected); Parainfluenza Virus 3 PCR Not Detected (NotDetected); Parainfluenza Virus 4 PCR Not Detected (NotDetected); Respiratory Syncytial VirusPCR Not Detected (NotDetected); Rhinovirus/Enterovirus PCR Not Detected (NotDetected)
[2024-10-12 10:38] LABS: Lyme Screen Rflx Confirmation Negative (Negative)
[2024-10-12] MEDS: AZITHROMYCIN 250 MG TAB PO SCH (11:29)
[2024-10-12 14:21] VITALS: BP 122/71; PULSE 88; RESP 17; TEMP 98.8; O2SAT 98
--- NOTE | 2024-10-12 20:19 | Discharge Summary ---
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 Was hospitalized earlier this week for same, came back to ED with persistent/worsening pain symptoms and found to have fever that was asymptomatic for him. - pain in his usual area of upper arms, low back, thighs. No chest pain or hy poxia on admission. Consistent low grade fevers and some chills/sweats, possible bronchitis on CXR but no cough/wheeze/dyspnea, mild stuffy nose. Respiratory biofire and serial procalcitonin were negative. UA negative. Hydrated with IV fluids, recieved tylenol, toradol, oral oxycodone for pain Pain crisis resolving and able to manage at home at this time Today he noticed some soreness at very bottom of sternum / xiphoid process and costochondral area, this is easily reproducible on palpation. He has had no hypoxia, cough, or dyspnea and 2-view CXR today was normal. Does not meet zhen rn for acute chest crisis. He has been working out recently perhaps MSK soreness, he has not had pain from vasoocclusive crisis in this area in the past. 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 No known tick exposures, only walks outdoors on campus[place]city -continue prophylactic PCN-VK 250mg po daily -he strongly wishes to discharge home today, discussed extensively with Donnell and his mother today - they think it is likely viral syndrome as in the past, she will stay with him several days, and they are reliable to return to ED if worsening or if blood cultures turn positive Sickle cell anemia -not on hydroxyurea. continue folic acid -anemia is near baseline of 9s, mild dilutional and phlebotomy drop, mild chronic elevation of bilirubin unchanged Hypokalemia on admission replaced, resolved Referred to [facility] for follow up (2) Fever: Notes For Next Care Provider blood cultures, anaplasmosis and babesiosis DNA and peripheral blood smear pending Medication Changes From Visit oxycodone p.o. 5 mg as needed for pain, refilled his penicillin prescription Admission HPI Per Admitting Provider Donnell Pacheco is a 24yo male with history of sickle cell anemia presenting with pain and fever. Patient was recently admitted to [facility] from 10/07 - 10/09/24 for sickle cell pain crisis. He was treated with supplemental O2, hydration and pain medication. He reports that he was just starting to feel improved on his day of discharge. Since he has been home he has had worsening of his pain. Pain involves his upper thighs bilaterally as well as his arms and his lower back. It is similar to his sickle cell pain but is more severe than a typical crisis. He does have a fever on arrival at 38 but denies fevers at home. No headache, chest pain, cough, congestion, abdominal pain, nausea, vomiting, diarrhea, rash or urinary complaints. He has not had any sick contacts to his knowledge. No additional complaints at this time. In the ER he is febrile (38 remeasured in room), mildly tachycardic with HR of 100. He reports that PO Oxycodone, Tylenol and Toradol work best to manage his pain. He also reports that he has infrequent pain crises and he typically improves fairly rapidly. Family is at bedside and provides history as well. ER Course: Oxycodone 5mg NSS 1L Tylenol 1gm Toradol 10mg Discharge Exam PHYSICAL EXAMINATION Last 24h vital signs reviewed, see documentation in flowsheet General: comfortable appearing, no distress HEENT: Normocephalic, atraumatic, pupils round and equal, sclerae anicteric, no conjunctival injection, moist mucus membranes. mild stuffy nose without drainage Lungs: Normal respiratory effort. Clear to auscultation bilaterally. No RRW lower sternum near xiphoid process and lower costochondral joints tender to palpation Heart: Regular rate and rhythm, no murmurs. No JVD Abdomen: nondistended Extremities: Warm, dry, well-perfused. No extremity edema. Neuro: Alert and oriented x 4, face symmetric, moves 4 extremities well Psych: Normal affect and behavior Discharge Plan Discharge Items Patient Disposition: Home - Self-Care Reason For Visit: SICKLE CELL PAIN CRISIS, FEVER Discharge Diagnosis: Fever, possible viral syndrome, sickle cell pain crisis Activity: Resume your previous activity Non-emergency contact: Primary Care Provider Call non-emergency contact if: you have any medication questions Follow-up/Referrals: [facility] [Primary Care Provider] - (PLEASE FOLLOW UP WITH [facility] IN 7-10 DAYS.) Diet: Regular Addtl Attending Provider Instructions: You were treated for sickle cell pain crisis and evaluated for fevers Extensive testing has been negative to date for the cause of the fever. It probably is a viral syndrome. Respiratory viral swabs and monospot test were negative x 2. Lyme was negative. There are still some pending tests: Admission blood cultures are negative at 48 hours, they finalize at 5 days Parvovirus IgM and IgG are pending Anaplasmosis and Babesiosis DNA are pending If blood cultures turn positive I will have to call you back into the hospital for further antibiotics. If parvovirus testing is positive we'll arrange repeat blood counts because it has the potential for severe anemia Anaplasmosis and babesiosis DNA tests are pending - these are tickborne infections that are common in [place]. Untreated they can become very serious, but easy to treat with specific antibiotics. Return to the ER if you are having worsening pain including worsening chest pain, shortness of breath, nonresolving or worsening fevers or malaise. Most fevers from viruses last 7-10 days at most. You can take acetaminophen and oxycodone for pain. You can also take ibuprofen or naproxen, however, be sparing with this because you've had a fair amount of toradol this week Stay well hydrated and get some rest Taking a probiotic or eating live culture yogurt for 2 to 4 weeks is a good idea to prevent antibiotic associated diarrhea Its a good idea to follow up with [facility] within a few weeks to check in and establish care It was a pleasure taking care of you in the hospital, Triny Maza MD Pending Studies at Discharge: Yes Stand-Alone Forms: [facility], Pain - Opioid Pain Management, Work/School Release, Smoking Cessation Medications and DC Order Prescriptions: New penicillin V potassium 250 mg Tablet 250 mg PO DAILY Qty: 30 0RF oxycodone 5 mg Tablet 5 mg PO Q4H PRN (Reason: pain) Qty: 20 0RF Continued folic acid 1 mg tablet 1 mg PO DAILY acetaminophen 500 mg Tablet 500 mg PO Q6H PRN (Reason: Pain) Discontinued ketorolac 10 mg tablet 10 mg PO Q6H PRN (Reason: pain) 5 Days Qty: 20 0RF oxycodone 5 mg Tablet 5 mg PO BID PRN (Reason: Pain) Discharge Orders: Discharge Order (Routine); Ordered 10/12/24 Ordered By: Triny Maza Admission Data Admit Date/Time: 10/10/24 06:11 Attending Provider: Triny Maza Admit Provider: Laurie Singh Primary Care Provider: [facility] Other Interventions: Discharge Summary Assessment (RN) Last Done: 10/12/24 14:12 Hospital Stay Data Pending Results Patient Have Any Pending Studies at Discharge: Yes Discharge Instructions Given to Patient (Per Discharging Provider) You were treated for sickle cell pain crisis and evaluated for fevers Extensive testing has been negative to date for the cause of the fever. It probably is a viral syndrome. Respiratory viral swabs and monospot test were negative x 2. Lyme was negative. There are still some pending tests: Admission blood cultures are negative at 48 hours, they finalize at 5 days Parvovirus IgM and IgG are pending Anaplasmosis and Babesiosis DNA are pending If blood cultures turn positive I will have to call you back into the hospital for further antibiotics. If parvovirus testing is positive we'll arrange repeat blood counts because it has the potential for severe anemia Anaplasmosis and babesiosis DNA tests are pending - these are tickborne infections that are common in [place]. Untreated they can become very serious, but easy to treat with specific antibiotics. Return to the ER if you are having worsening pain including worsening chest pain, shortness of breath, nonresolving or worsening fevers or malaise. Most fevers from viruses last 7-10 days at most. You can take acetaminophen and oxycodone for pain. You can also take ibuprofen or naproxen, however, be sparing with this because you've had a fair amount of toradol this week Stay well hydrated and get some rest Taking a probiotic or eating live culture yogurt for 2 to 4 weeks is a good idea to prevent antibiotic associated diarrhea Its a good idea to follow up with [facility] within a few weeks to check in and establish care It was a pleasure taking care of you in the hospital, Triny Maza MD Total Time Total Time Spent Total Time Spent (In Minutes): I personally spent: 45 minutes today on clinical care activities including: reviewing chart notes and vital signs reviewing labs reviewing studies examining and counseling the patient counseling the patient's family writing orders writing prescriptions, discharge instructions documentation Coding Level of Care Code 65497 INP/OBS DISCH >30 MIN Diagnoses Sickle cell crisis D57.00 Fever R50.9
[2024-10-15 17:47] LABS: Babesia microti DNA Not Detected (Not Detected)
[2024-10-17 15:52] LABS: Parvovirus IgG 0.1 (<0.9); Parvovirus IgM 0.1 (<0.9)
== END 2024-10-12 15:04 | disposition home or self-care (01) | DRG 871 ==
LOC: ED 03:57 → SUATTDRO 06:11 → EDINP 06:11 → INTOOBSV 06:11 → 3E 18:33